=== PATIENT | female | born 1995 | race Caucasian/White ===

== ENCOUNTER 2021-03-31 08:57 | Inpatient (IN) | payer MEDICAID, SELFPAY ==
[~2021-03-31] VITALS: Ht 142.2 cm; Wt 52.6 kg
--- NOTE | 2021-03-31 08:57 | NUR ---
Note undone in EDM - 03/31/21 at 0941 by [email or web address] 25 Y FEMALE BIBA FROM [facility] DUE TO ABDOMINAL DISTENTION, PT ACTIVELY CRYING, AND PT UNABLE TO TOLERATE FEEDING THIS AM. PER EMS PT WAS ONLY ABLE TO TOLERATE HALF OF HER FEEDING THIS AM AND HAS BEEN CRYING X2 DAYS. BOWEL SOUNDS ACTIVE IN ALL 4 QUDRANTS, AND ABDOMEN NON-TENDER. G-TUBE NOTED WITH REDNESS AROUND SITE. BILTERAL WHEEZING NOTED. PT BASELINE IS NON-VERBAL PMH: CERBERAL PALSY, CHF, SEZIURE, G-TUBE, AND OSTEOPENIA ALLERGIES: LEVAQUIN, ZINC, CEFTRIAXONE, ADHESIVE
--- NOTE | 2021-03-31 08:57 | NUR ---
DR. TUBBS BEDSIDE EVALUATING PT
--- NOTE | 2021-03-31 08:57 | NUR ---
PT BIBA AND TAKEN TO BED 9
--- NOTE | 2021-03-31 08:57 | NUR ---
25 Y FEMALE BIBA FROM [facility] DUE TO ABDOMINAL DISTENTION, PT ACTIVELY CRYING, AND PT UNABLE TO TOLERATE FEEDING THIS AM. PER EMS PT WAS ONLY ABLE TO TOLERATE HALF OF HER FEEDING THIS AM AND HAS BEEN CRYING X2 DAYS. PT ALSO HAD LOW GRADE FEVER AT 99.1 AND GIVEN TYLENOL. BOWEL SOUNDS ACTIVE IN ALL 4 QUDRANTS, AND ABDOMEN NON-TENDER. G-TUBE NOTED WITH REDNESS AROUND SITE. BILTERAL WHEEZING NOTED. PT BASELINE IS NON-VERBAL PMH: CERBERAL PALSY, CHF, SEZIURE, G-TUBE, AND OSTEOPENIA ALLERGIES: LEVAQUIN, ZINC, CEFTRIAXONE, ADHESIVE
[2021-03-31 08:59] VITALS: BP 96/56
--- NOTE | 2021-03-31 09:20 | NUR ---
# 15 FR Urinary catheter inserted utilizing sterile technique. Immediate return of 20 ml YELLOW urine noted. Urine sample collected and sent to lab. Pt tolerated procedure WELL.
--- NOTE | 2021-03-31 09:22 | NUR ---
LAB BEDISDE WITH PATIENT
--- NOTE | 2021-03-31 09:25 | NUR ---
ORAL CARE WAS PROVIDED AT BEDSIDE
[2021-03-31] MEDS ORDERED: NACL 0.9% 1,000 ML IV ONE (09:50)
[2021-03-31 09:51] LABS: BASOPHILS # (AUTO) 0.1 K/uL (0.00-0.22); BASOPHILS % (AUTO) 0.6 % (0.0-2.0); EOSINOPHILS # (AUTO) 0.3 K/uL (0-0.4); EOSINOPHILS % (AUTO) 3.5 % (0.0-4.0); HEMATOCRIT 33.5 % (36-48); HEMOGLOBIN 11.5 g/dL (12.0-16.0); LYMPHOCYTES # (AUTO) 0.9 K/uL (2.5-16.5); LYMPHOCYTES % (AUTO) 10.5 % (20.5-51.1); MEAN CORPUSCULAR HEMOGLOBIN 33 pg (27-31); MEAN CORPUSCULAR HGB CONC 34 g/dL (33-37); MEAN CORPUSCULAR VOLUME 95.6 fL (80-94); MONOCYTES # (AUTO) 0.5 K/uL (0.8-1.0); MONOCYTES % (AUTO) 5.6 % (1.7-9.3); NEUTROPHILS # (AUTO) 6.7 K/uL (1.8-7.7); NEUTROPHILS % (AUTO) 79.8 % (42.2-75.2); PLATELET COUNT (AUTO) 326 K/uL (140-450); WHITE BLOOD COUNT (AUTO) 8.5 K/uL (4.8-10.8)
[2021-03-31 09:59] LABS: APPEARANCE,URINE CLEAR (CLEAR); BILIRUBIN,URINE NEGATIVE (NEGATIVE); BLOOD, URINE NEGATIVE (NEGATIVE); COLOR,URINE YELLOW (YELLOW); LEUKOCYTE ESTERASE ,URINE 2+ (NEGATIVE); NITRITE, URINE POSITIVE (NEGATIVE); UGLUCOSE NEGATIVE (NEGATIVE)
--- NOTE | 2021-03-31 10:03 | NUR ---
PT TAKEN TO CT VIA CLEVE
[2021-03-31] MEDS ORDERED: PIPERACILLIN/TAZOBACTAM 3.375 GM in DEXTROSE 5% 50 ML IV ONE (10:05)
[2021-03-31] MEDS ORDERED: NACL 0.9% 500 ML IV ONE (10:05)
--- NOTE | 2021-03-31 10:11 | NUR ---
PATIENT BACK FROM CT VIA GURNEY.
[2021-03-31 10:33] LABS: RBC,URINE 0-5 /HPF (0-5)
[2021-03-31] MEDS ORDERED: PIPERACILLIN/TAZOBACTAM 3.375 GM VIAL IV ONE (10:49)
[2021-03-31 10:52] LABS: ANION GAP 12.5 (8-16); CARBON DIOXIDE 25.7 mmol/L (21-32); CREATININE 0.4 mg/dL (0.6-1.3); POTASSIUM 4.2 mmol/L (3.5-5.1); TOTAL BILIRUBIN 0.2 mg/dL (0.0-1.0)
--- NOTE | 2021-03-31 11:11 | NUR ---
VITALS NORMAL, PATIENT RESTING.
[2021-03-31] MEDS ORDERED: GLYCERIN ADULT 1 SUPP RC ONE (11:25)
--- NOTE | 2021-03-31 11:38 | NUR ---
PT ADMITTED TO MED-SURG UNDER DR. RIOS. PT MED-SURG HOLD IN ER BED 9
[2021-03-31] MEDS ORDERED: [UNRECOGNIZED DRUG - CODE] GT (11:50)
[2021-03-31] MEDS ORDERED: [UNRECOGNIZED DRUG - CODE] GT (11:50)
[2021-03-31] MEDS ORDERED: NYST100022 GT/PO (11:50)
[2021-03-31] MEDS ORDERED: NYST100022 SUBQ (11:50)
[2021-03-31] MEDS ORDERED: VIT500LI GT (11:50)
[2021-03-31] MEDS ORDERED: PRON INH (11:50)
[2021-03-31] MEDS ORDERED: DOXY-690 GT (11:50)
[2021-03-31] MEDS ORDERED: LISI5TAB18 GT (11:50)
[2021-03-31] MEDS ORDERED: SODI100076 GT (11:50)
[2021-03-31] MEDS ORDERED: DIAZ2.5K PO (11:50)
[2021-03-31] MEDS ORDERED: ACET-1317 GT (11:50)
[2021-03-31] MEDS ORDERED: LAM200 GT (11:50)
[2021-03-31] MEDS ORDERED: MOM GT (11:50)
[2021-03-31] MEDS ORDERED: IBUP200C15 GT (11:50)
[2021-03-31] MEDS ORDERED: TIZA4CAP GT (11:50)
[2021-03-31] MEDS ORDERED: BACL10TA4 GT (11:50)
[2021-03-31] MEDS ORDERED: MIRABULK GT (11:50)
[2021-03-31] MEDS ORDERED: PHEN20EL30 GT (11:50)
[2021-03-31] MEDS ORDERED: ZINC220T3 GT (11:50)
[2021-03-31] MEDS ORDERED: METO25TA14 GT (11:50)
[2021-03-31] MEDS ORDERED: ROBAC GT (11:50)
[2021-03-31] MEDS ORDERED: AZEL23SP NS (11:50)
[2021-03-31] MEDS ORDERED: FAMO-90 GT (11:50)
[2021-03-31] MEDS ORDERED: CARB100S GT (11:50)
[2021-03-31] MEDS ORDERED: SIME80TA22 GT ×2 (11:50)
[2021-03-31] MEDS ORDERED: BISA-218 RC (11:50)
[2021-03-31] MEDS ORDERED: ACET-2619 GT (11:50)
[2021-03-31] MEDS ORDERED: METO5TAB4 GT (11:50)
--- NOTE | 2021-03-31 11:50 | NUR ---
MED REC COMPLETED. USED PATIENT MED-REC SENT FROM FACILITY TO ENTER MEDICATIONS INTO SYSTEM
--- NOTE | 2021-03-31 11:51 | NUR ---
KEV SWAB DONE AND TAKEN TO THE LAB.
--- NOTE | 2021-03-31 11:51 | NUR ---
ELENA ANGULO SWAB COLLECTED AND WALKED OVER TO LAB
--- NOTE | 2021-03-31 12:21 | NUR ---
CLEANED PATIENTS GARY AREA.
--- NOTE | 2021-03-31 13:18 | NUR ---
Patient will be admitted to care of DR RIOS. Admited to MED SURGE. Will go to room 110B. Belongings list completed. Report to NOHELIA CERDA. PATIENE TAKEN BY EMT SHELDON VIA CLEVE.
--- NOTE | 2021-03-31 13:30 | NUR ---
RECEIVED PT FROM ER. HAD TO CALL [facility] SHE IS FROM TO SEND OVER THE GT TUBE. THEY WILL DELIVER THE PORT BY THE END OF MY SHIFT. COULD NOT START TUBE FEEDING OR GIVE GT MEDS UNTIL THEN.
--- NOTE | 2021-03-31 14:52 | NUR ---
PATIENT HAS BEEN SCREENED AND CATEGORIZED HIGH NUTRITION RISK. PATIENT WILL BE SEEN WITHIN 1-2 DAYS OF ADMISSION. 03/31/21-04/01/[address]
--- NOTE | 2021-03-31 15:18 | NUR ---
03/31/21 RD INITIAL ASSESSMENT COMPLETED PLEASE REFER TO NUTRITION ASSESSMENT UNDER CARE ACTIVITY FOR ESTIMATED NUTRITIONAL NEEDS. 1. RECOMMENDED JEVITY 1.2 @ 45 ML/HR; START AT 10 ML/HR INCREASE BY 10 ML Q4H -THIS WILL PROVIDE 1296 KCAL/DAY AND 60 GM OF PROTEIN/DAY; MEETING ADEQUATE NUTRIENT NEEDS 2. RECOMMENDED FREE WATER FLUSH OF [address] PRN 4. RD TO FOLLOW-UP 2-3 DAYS, HIGH RISK AMARILIS SILVA RD
[2021-03-31 16:00] VITALS: BP 136/79
[2021-03-31] MEDS: LACTULOSE 20 GM/30 ML UDC PO SCH ×2 (16:15→22:00)
[2021-03-31] MEDS: SENNA 8.6 MG TAB PO SCH (17:00)
[2021-03-31] MEDS ORDERED: LACTULOSE 20 GM/30 ML UDC PO SCH (17:00)
[2021-03-31] MEDS: METOCLOPRAMIDE 10 MG/2 ML INJ VIAL IVP SCH (17:40)
[2021-03-31] MEDS ORDERED: SIMETHICONE 80 MG TAB.CHEW GT PRN ×2 (18:05)
[2021-03-31] MEDS ORDERED: ACETAMINOPHEN 325 MG TAB GT PRN (18:05)
[2021-03-31] MEDS ORDERED: ALBUTEROL 0.083% 2.5 MG/3 ML NEBU INH PRN (18:05)
[2021-03-31] MEDS ORDERED: HYDROcodone/APAP 5/325 MG 1 TAB TAB GT PRN (18:05)
[2021-03-31] MEDS ORDERED: LORazepam 2 MG/ML VIAL IVP PRN (18:05)
[2021-03-31] MEDS ORDERED: IBUPROFEN 200 MG GT SCH (18:05)
[2021-03-31] MEDS ORDERED: ACETAMINOPHEN 325 MG TAB GT SCH (18:05)
[2021-03-31] MEDS ORDERED: POLYETHYLENE GLYCOL 17 GM/PKT GT PRN (18:05)
[2021-03-31] MEDS ORDERED: [UNRECOGNIZED DRUG - OTHER] GT SCH (18:05)
[2021-03-31] MEDS: DEXT 5% / NACL 0.45% 1,000 ML IV SCH (18:05)
[2021-03-31] MEDS ORDERED: ONDANSETRON 4 MG/2 ML VIAL IVP PRN (18:05)
[2021-03-31] MEDS ORDERED: IBUPROFEN CHILDRENS 100 MG/5 ML UDC GT PRN (18:45)
[2021-03-31] MEDS ORDERED: ACETAMINOPHEN 650 MG/20.3 ML UDC GT PRN (19:05)
--- NOTE | 2021-03-31 19:50 | NUR ---
RECEIVED PT FROM AM SHIFT NURSE FOR CONTINUITY OF CARE. PT APHASIC. PT IN RA. PEG TUBE ASSEMBLY NOT ATTACHED. HELPED AM RN TO CONNECT AND FIX GTUBE TUBING SO THAT HE CAN ADMINISTER HIS DUE MEDICATION.NEW BOTTLE OF FEEDING TUBE WAS HOOKED UP. INFUSING WELL. TOLERATED BY PT. ALL PRECAUTIONS IN PLACE. WILL CONTINUE TO MONITOR.
--- NOTE | 2021-03-31 19:50 | NUR ---
ENDORSED PT TO NIGHT NURSE. DISCUSSED POC. ENDORSED INFORMATION ABOUT ALLERGIES. PT IS STABLE.
--- NOTE | 2021-03-31 19:55 | NUR ---
Pt received on room air. SpO2 94% on RA. Pt assessed for hhn tx PRN. No SOB noted. No indication observed for hhn tx at this time.
--- NOTE | 2021-03-31 20:00 | NUR ---
Pt received on 2L/min NC. SpO2 98% on 2L/m. Pt assessed for hhn tx PRN. No SOB noted. No indication observed for hhn tx at this time.
[2021-03-31] MEDS ORDERED: DIAZEPAM PO SCH (21:00)
[2021-03-31] MEDS ORDERED: guaiFENesin/CODEINE 100/10MG 5 ML UDC GT PRN (21:00)
[2021-03-31] MEDS: SODIUM PHOS / POTASSIUM PHOS 1 PKT PDR GT SCH (21:57)
--- NOTE | 2021-03-31 21:57 | NUR ---
WASTED 1MG OF STOCKED 4MG DIAZEPAM WITH PRASHANT RIVERA.
[2021-03-31] MEDS: diazePAM 2 MG TAB GT SCH (21:58)
--- NOTE | 2021-03-31 21:58 | NUR ---
DUE MEDICATIONS GIVEN.PT TOLERATED WELL. NO ACUTE DRUG REACTION NOTED.PT NOT IN ANY DISTRESS. ALL SAFETY PRECAUTIONS IN PLACE. WILL CONTINUE TO MONITOR.
[2021-03-31] MEDS ORDERED: MAGNESIUM CITRATE 300 ML BTL PO ONE (22:00)
--- NOTE | 2021-03-31 22:10 | NUR ---
MISCOUNTED PHENOBARBITAL 20MG/5ML SOLUTION. REMOVED 5 BUT ENTERED 1 REMAINING BUT IT'S SUPPOSED TO BE 0.
[2021-03-31] MEDS ORDERED: VANCOMYCIN 1,000 MG VIAL ONE (22:32)
[2021-03-31] MEDS: PIPERACILLIN/TAZOBACTAM 3.375 GM in DEXTROSE 5% 50 ML IV SCH (22:38)
--- NOTE | 2021-03-31 23:55 | NUR ---
PT ASLEEP IN BED. VISIBLE CHEST RISE AND FALL NOTED. PT NOT IN ANY DISTRESS.ALL PRECAUTIONS IN PLACE. WILL CONTINUE TO MONITOR.
--- NOTE | 2021-04-01 02:30 | NUR ---
ROUNDS MADE. PT STABLE. NO ACUTE S/SX OF DISTRESS. ALL SAFETY PRECAUTIONS IN PLACE. WILL CONTINUE TO MONITOR.
[2021-04-01 04:00] VITALS: BP 143/95
[2021-04-01] MEDS: DEXT 5% / NACL 0.45% 1,000 ML IV SCH (04:05)
[2021-04-01] MEDS: PIPERACILLIN/TAZOBACTAM 3.375 GM in DEXTROSE 5% 50 ML IV SCH ×3 (04:44→21:22)
--- NOTE | 2021-04-01 05:00 | NUR ---
DUE MEDS GIVEN. PT TOLERATED WELL. WILL CONTINUE TO MONITOR.
--- NOTE | 2021-04-01 06:44 | NUR ---
PT STABLE. NO ACUTE EVENTS THROUGHOUT THE NIGHT.PT NOT IN ANY DISTRESS AND NO COMPLAINS AT THIS TIME. ALL NEEDS ATTENDED.WILL ENDORSE TO AM SHIFT NURSE. WILL CONTINUE TO MONITOR.
[2021-04-01 06:53] LABS: BASOPHILS # (AUTO) 0.1 K/uL (0.00-0.22); BASOPHILS % (AUTO) 0.8 % (0.0-2.0); EOSINOPHILS # (AUTO) 0.2 K/uL (0-0.4); HEMATOCRIT 33.2 % (36-48); HEMOGLOBIN 11.2 g/dL (12.0-16.0); LYMPHOCYTES # (AUTO) 0.7 K/uL (2.5-16.5); LYMPHOCYTES % (AUTO) 10.6 % (20.5-51.1); MEAN CORPUSCULAR HEMOGLOBIN 33 pg (27-31); MEAN CORPUSCULAR HGB CONC 34 g/dL (33-37); MEAN CORPUSCULAR VOLUME 96.2 fL (80-94); MONOCYTES # (AUTO) 0.6 K/uL (0.8-1.0); MONOCYTES % (AUTO) 8.2 % (1.7-9.3); NEUTROPHILS # (AUTO) 5.4 K/uL (1.8-7.7); NEUTROPHILS % (AUTO) 77.4 % (42.2-75.2); PLATELET COUNT (AUTO) 345 K/uL (140-450); RED BLOOD CELL COUNT(AUTO) 3.45 MIL/uL (4.20-5.40); WHITE BLOOD COUNT (AUTO) 6.9 K/uL (4.8-10.8)
[2021-04-01 06:55] LABS: ANION GAP 16.6 (8-16); CARBON DIOXIDE 23.5 mmol/L (21-32); CREATININE 0.4 mg/dL (0.6-1.3); POTASSIUM 3.1 mmol/L (3.5-5.1)
--- NOTE | 2021-04-01 07:23 | NUR ---
ALL REPORTS WERE GIVEN TO INCOMING RN, TRANSFER OF CARE WAS ENDORSED.
--- NOTE | 2021-04-01 08:59 | NUR ---
Patient potassium at 3.1 notified Physician and awaiting orders.
[2021-04-01] MEDS ORDERED: TIZANIDINE HCL GT SCH (09:00)
[2021-04-01] MEDS ORDERED: MAGNESIUM HYDROXIDE 2400 MG/30 ML UDC GT SCH (09:00)
[2021-04-01] MEDS ORDERED: CHOLECALCIFEROL 1000 MCG GT SCH (09:00)
[2021-04-01] MEDS: ZINC SULF 220 MG CAP GT SCH (09:00)
[2021-04-01] MEDS ORDERED: NON-FORMULARY ITEM (Vit C/Ascorbate Ca/Ascorb Sod (Vitamin C 500 mg/15 ml Liquid) 500 MG) GT SCH (09:00)
[2021-04-01] MEDS ORDERED: METOCLOPRAMIDE 10 MG/10 ML SYRP UDC GT SCH (09:00)
[2021-04-01] MEDS ORDERED: NON-FORMULARY ITEM (Metoclopramide HCl 5 MG) GT SCH (09:00)
[2021-04-01] MEDS ORDERED: ZINC SULFATE 220 MG GT SCH (09:00)
[2021-04-01] MEDS: SODIUM PHOS / POTASSIUM PHOS 1 PKT PDR GT SCH ×2 (09:01→21:22)
[2021-04-01] MEDS ORDERED: POTASSIUM CHLORIDE 10 MEQ TABER PO SCH ×2 (10:00→11:00)
[2021-04-01] MEDS ORDERED: MAG SULF 2000 MG/WATER PREMIX 50 ML IV PRN (10:20)
[2021-04-01] MEDS ORDERED: POTASSIUM CHLORIDE 10 MEQ TABER PO PRN (10:20)
[2021-04-01] MEDS: LACTULOSE 20 GM/30 ML UDC PO SCH ×2 (11:24→11:50)
[2021-04-01] MEDS: diazePAM 2 MG TAB GT SCH ×2 (11:25→21:00)
[2021-04-01] MEDS: METOPROLOL 25 MG TAB GT SCH (11:28)
[2021-04-01] MEDS: NYSTATIN 500 MU/5 ML UDC GT SCH (11:28)
[2021-04-01] MEDS: FAMOTIDINE 20 MG TAB GT SCH (11:28)
[2021-04-01] MEDS: tiZANidine 4 MG TAB GT SCH ×3 (11:30→17:38)
[2021-04-01] MEDS: CHOLECALCIFEROL 1,000 IU TAB GT SCH (11:30)
[2021-04-01] MEDS: BACLOFEN 10 MG TAB GT SCH ×3 (11:30→17:37)
[2021-04-01] MEDS: lisinopriL 5 MG TAB GT SCH (11:31)
[2021-04-01] MEDS: ASCORBIC ACID 500 MG/5 ML ORASYR GT SCH (11:33)
[2021-04-01] MEDS: SODIUM CHLORIDE 1 GM TAB GT SCH ×3 (11:35→17:37)
[2021-04-01] MEDS: SENNA 8.6 MG TAB PO SCH (11:37)
[2021-04-01] MEDS: METOCLOPRAMIDE 10 MG/2 ML INJ VIAL IVP SCH (11:42)
[2021-04-01] MEDS: bisacodyL 10 MG SUPP RC SCH (11:42)
[2021-04-01] MEDS ORDERED: POTASSIUM CHLORIDE 20% 40 MEQ/15 ML UDC GT SCH (11:55)
[2021-04-01 12:00] VITALS: BP 143/76
--- NOTE | 2021-04-01 13:21 | NUR ---
patient had a witnessed Seizure that lasted 30 seconds per Geni Blackburn. Person was shaking and rolling eyes. Given meds and has no further seizure activity.
--- NOTE | 2021-04-01 14:36 | NUR ---
DC PLANN[age] YRS OLD FEMALE PATIENT WAS ADMITTED FROM [facility] WITH A DX OF UTI AND FECAL IMPACTION. PATIENT HAS A HX OF CEREBRAL PALSY, HTN, DYSPHAGIA. RAPID COVID TEST NEGATIVE. CT ABD/PELVIS SHOWED GASEOUS DISTENTION OF THE LARGE BOWEL . ADMINISTERED IV ABX ZOSYN AND CONTINUED HOME MEDS. URINE CULTURE PENDING. CONSULTED WITH GI, AND ID. DC PLAN TO GO BACK TO [facility] WHEN STABLE. CM TO FOLLOW Addendum: 04/02/21 at 1245 by Debora Irizarry RN DC PLANNING: PATIENT HAS BM SEEN BY NEUROLOGIST AND ID . AWAITING FOR URINE CULTURE , DC PLAN TO GO BACK TO [facility] WHEN STABLE CM TO FOLLOW.
--- NOTE | 2021-04-01 19:33 | NUR ---
PT RECEIVED ON RA NO RESPIRATORY DISTRESS NOTED, SHE WAS ASLEEP. BS CLEAR DIMINISHED ASSESSED FOR HHN TX NON NEEDED. WILL CONTINUE TO MONITOR.
--- NOTE | 2021-04-01 19:35 | NUR ---
RECEIVED PT FROM AM SHIFT NURSE FOR CONTINUITY OF CARE. PT APHASIC. PT IN RA.TUBE FEEDING WITH NO RESIDUALS,RUNNING JEVITY 1.2 20ML/HR WITH 120ML WATER FLUSH Q4.ALL SAFETY PRECAUTIONS IN PLACE. WILL CONTINUE TO MONITOR.
[2021-04-01 20:00] VITALS: BP 129/67
--- NOTE | 2021-04-01 21:15 | NUR ---
DUE MEDICATIONS GIVEN.PT TOLERATED WELL. NO ACUTE DRUG REACTION NOTED.PT NOT IN ANY DISTRESS. ALL SAFETY PRECAUTIONS IN PLACE. WILL CONTINUE TO MONITOR.
--- NOTE | 2021-04-01 23:30 | NUR ---
PT ASLEEP IN BED. VISIBLE CHEST RISE AND FALL NOTED. PT NOT IN ANY DISTRESS.ALL PRECAUTIONS IN PLACE. WILL CONTINUE TO MONITOR.
--- NOTE | 2021-04-02 02:12 | NUR ---
ROUNDS MADE. PT STABLE. NO ACUTE S/SX OF DISTRESS. ALL SAFETY PRECAUTIONS IN PLACE. WILL CONTINUE TO MONITOR.
[2021-04-02 04:00] VITALS: BP 151/82
[2021-04-02] MEDS: PIPERACILLIN/TAZOBACTAM 3.375 GM in DEXTROSE 5% 50 ML IV SCH ×3 (04:52→22:26)
--- NOTE | 2021-04-02 06:15 | NUR ---
PT STABLE. NO ACUTE EVENTS THROUGHOUT THE NIGHT.PT NOT IN ANY DISTRESS AND NO COMPLAINS AT THIS TIME. ALL NEEDS ATTENDED.WILL ENDORSE TO AM SHIFT NURSE.
[2021-04-02 06:47] LABS: ANION GAP 13.1 (8-16); CARBON DIOXIDE 27.7 mmol/L (21-32); CREATININE 0.4 mg/dL (0.6-1.3); POTASSIUM 3.8 mmol/L (3.5-5.1)
[2021-04-02 06:50] LABS: MAGNESIUM 2.4 mg/dL (1.8-2.4); PHOSPHORUS 4.1 mg/dL (2.5-4.9)
[2021-04-02 06:58] LABS: BASOPHILS # (AUTO) 0.1 K/uL (0.00-0.22); BASOPHILS % (AUTO) 0.9 % (0.0-2.0); EOSINOPHILS # (AUTO) 0.4 K/uL (0-0.4); EOSINOPHILS % (AUTO) 5.1 % (0.0-4.0); HEMATOCRIT 33.4 % (36-48); HEMOGLOBIN 11.2 g/dL (12.0-16.0); LYMPHOCYTES # (AUTO) 1.8 K/uL (2.5-16.5); MEAN CORPUSCULAR HEMOGLOBIN 32 pg (27-31); MEAN CORPUSCULAR HGB CONC 33 g/dL (33-37); MEAN CORPUSCULAR VOLUME 96.3 fL (80-94); MONOCYTES # (AUTO) 0.5 K/uL (0.8-1.0); NEUTROPHILS # (AUTO) 5.3 K/uL (1.8-7.7); PLATELET COUNT (AUTO) 311 K/uL (140-450); RED BLOOD CELL COUNT(AUTO) 3.47 MIL/uL (4.20-5.40)
--- NOTE | 2021-04-02 07:34 | NUR ---
PT ENDORSED TO AM SHIFT NURSE FOR CONTINUITY OF CARE.PT STABLE.SIGNING OFF
[2021-04-02] MEDS: bisacodyL 10 MG SUPP RC SCH (09:00)
[2021-04-02] MEDS: ZINC SULF 220 MG CAP GT SCH (09:00)
--- NOTE | 2021-04-02 09:21 | NUR ---
Patient awake, alert but unable to verbalize needs. Does not show any signs of pain, no new seizure active and resting in bed comfortably.
[2021-04-02] MEDS: FAMOTIDINE 20 MG TAB GT SCH (09:23)
[2021-04-02] MEDS: SODIUM PHOS / POTASSIUM PHOS 1 PKT PDR GT SCH ×2 (09:24→21:00)
[2021-04-02] MEDS: diazePAM 2 MG TAB GT SCH ×2 (09:24→22:25)
[2021-04-02] MEDS: METOPROLOL 25 MG TAB GT SCH (09:25)
[2021-04-02] MEDS: tiZANidine 4 MG TAB GT SCH ×3 (09:25→17:58)
[2021-04-02] MEDS: LACTULOSE 20 GM/30 ML UDC PO SCH (09:25)
[2021-04-02] MEDS: NYSTATIN 500 MU/5 ML UDC GT SCH (09:26)
[2021-04-02] MEDS: SODIUM CHLORIDE 1 GM TAB GT SCH ×3 (09:26→17:58)
[2021-04-02] MEDS: BACLOFEN 10 MG TAB GT SCH ×3 (09:26→17:58)
[2021-04-02] MEDS: CHOLECALCIFEROL 1,000 IU TAB GT SCH (09:27)
[2021-04-02] MEDS: ASCORBIC ACID 500 MG/5 ML ORASYR GT SCH (09:27)
[2021-04-02] MEDS: lisinopriL 5 MG TAB GT SCH (09:31)
[2021-04-02 12:00] VITALS: BP 135/89
--- NOTE | 2021-04-02 12:11 | NUR ---
WOUND CARE NOTE: PT. WITH LOW NILSON SCALE AT HIGH RISK, SKIN ASSESSMENT DONE, UPPER EXTREMITIES CONTRACTURE, RIGHT ARM ECCHYMOSIS POSSIBLE FROM BLOOD DRAW, LEFT POSTERIOR KNEE 0.5X0.5 INTACT CLEAR FLUIDS BLISTER, GARY WOUND DRY HEALED SCAR TISSUE, WILL CONTINUE TO FOLLOW PRESSURE INJURY PREVENTION INTERVENTIONS. -APPLY VERSATEL DRESSING TO LEFT POSTERIOR KNEE BLISTER TODAY AND Q DAYS -TURN AND REPOSITION PATIENT Q 2H -ASSESS AND MONITOR SKIN CONDITION DURING POSITION CHANGE -OFFLOAD BILATERAL HEELS BY PLACING PILLOWS UNDER CALVES AT ALL TIMES, UNLESS OTHERWISE CONTRAINDICATED -PRESSURE REDISTRIBUTION SURFACE AND OFFLOADING SACRALCOCCYX -KEEP SKIN CLEAN AND DRY AT ALL TIMES. PLEASE NOTIFIED WOUND CARE NURSE FOR ANY CHANGE OF SKIN CONDITION
--- NOTE | 2021-04-02 13:22 | NUR ---
RECEIVED APPROVAL FROM DR. AUSTIN TO INCREASE TUBE FEEDING RATE OF JEVITY 1.2 TO 45 ML/HR. RN WAS NOTIFIED.
--- NOTE | 2021-04-02 16:11 | NUR ---
04/02/21 RD FOLLOW UP COMPLETED PLEASE REFER TO NUTRITION ASSESSMENT UNDER CARE ACTIVITY FOR ESTIMATED NUTRITIONAL NEEDS. 1. RECOMMENDED JEVITY 1.2 @ 45 ML/HR; START AT 20 ML/HR INCREASE BY 10 ML Q4H -THIS WILL PROVIDE 1296 KCAL/DAY AND 60 GM OF PROTEIN/DAY; MEETING ADEQUATE NUTRIENT NEEDS 2. RECOMMEND FREE WATER FLUSH OF [address] PRN 4. RD TO FOLLOW-UP 2-3 DAYS, HIGH RISK AMARILIS SILVA RD
[2021-04-02 20:00] VITALS: BP 114/56
--- NOTE | 2021-04-02 20:00 | NUR ---
RECEIVED BEDSIDE REPORT FROM DAY RN FOR CONTINUITY OF CARE. PATIENT ASLEEP AND AROUSABLE TO TOUCH. NOT IN ANY DISTRESS. IVF AND G TUBE FEEDING INFUSING ORDERED. HEAD OF BED ELEVATED TO PREVENT ASPIRATION. BED IN LOW POSITION, BRAKES AND BED ALARM ON. WILL CONTINUE POC AND OBSERVATION.
--- NOTE | 2021-04-02 22:00 | NUR ---
ALL DUE MEDS GIVEN AND PT TOLERATED IT WELL. NO ADVERSE DRUG REACTION NOTED. WILL CONTINUE OBSERVATION.
--- NOTE | 2021-04-03 02:04 | NUR ---
PATIENT ASLEEP AT THIS TIME. VISIBLE CHEST RISE AND FALL NOTED. WILL CONTINUE OBSERVATION.
[2021-04-03 04:00] VITALS: BP 165/107
--- NOTE | 2021-04-03 04:00 | NUR ---
PATIENT BLOOD PRESSURE IS HIGH. WILL GIVE THE LISINOPRIL AND METOPROLOL EARLY. WILL CONTINUE TO MONITOR THE PT.
[2021-04-03] MEDS: PIPERACILLIN/TAZOBACTAM 3.375 GM in DEXTROSE 5% 50 ML IV SCH ×3 (04:53→21:00)
[2021-04-03] MEDS: METOPROLOL 25 MG TAB GT SCH (05:41)
[2021-04-03] MEDS: lisinopriL 5 MG TAB GT SCH (05:41)
[2021-04-03 06:01] LABS: BASOPHILS # (AUTO) 0.1 K/uL (0.00-0.22); BASOPHILS % (AUTO) 0.9 % (0.0-2.0); EOSINOPHILS # (AUTO) 0.4 K/uL (0-0.4); EOSINOPHILS % (AUTO) 5.3 % (0.0-4.0); HEMATOCRIT 34.1 % (36-48); HEMOGLOBIN 11.6 g/dL (12.0-16.0); LYMPHOCYTES # (AUTO) 2.5 K/uL (2.5-16.5); LYMPHOCYTES % (AUTO) 33.6 % (20.5-51.1); MEAN CORPUSCULAR HEMOGLOBIN 33 pg (27-31); MEAN CORPUSCULAR HGB CONC 34 g/dL (33-37); MONOCYTES # (AUTO) 0.4 K/uL (0.8-1.0); NEUTROPHILS % (AUTO) 54.2 % (42.2-75.2); PLATELET COUNT (AUTO) 341 K/uL (140-450); RED BLOOD CELL COUNT(AUTO) 3.56 MIL/uL (4.20-5.40); RED CELL DISTRIBUTION WIDTH 12.8 % (11.6-13.7); WHITE BLOOD COUNT (AUTO) 7.4 K/uL (4.8-10.8)
[2021-04-03 06:12] LABS: MAGNESIUM 2.1 mg/dL (1.8-2.4); PHOSPHORUS 4.5 mg/dL (2.5-4.9)
[2021-04-03 06:13] LABS: ANION GAP 12.8 (8-16); CARBON DIOXIDE 27.2 mmol/L (21-32); CREATININE 0.3 mg/dL (0.6-1.3)
--- NOTE | 2021-04-03 06:24 | NUR ---
PATIENT STABLE. NO SIGN AND SYMPTOMS OF DISTRESS NOTED AT THIS TIME. ALL NEEDS ATTENDED. WILL ENDORSE THE PATIENT TO THE ONCOMING RN FOR CONTINUITY OF CARE. CALL LIGHT WITHIN REACH.
--- NOTE | 2021-04-03 07:27 | NUR ---
ENDORSED THE PATIENT TO THE ONCOMING RN ANDREW FOR CONTINUITY OF CARE. PATIENT STABLE. SIGNING OFF.
[2021-04-03] MEDS: bisacodyL 10 MG SUPP RC SCH (09:00)
[2021-04-03] MEDS: tiZANidine 4 MG TAB GT SCH ×3 (09:23→16:37)
[2021-04-03] MEDS: LACTULOSE 20 GM/30 ML UDC PO SCH (09:23)
[2021-04-03] MEDS: FAMOTIDINE 20 MG TAB GT SCH (09:24)
[2021-04-03] MEDS: BACLOFEN 10 MG TAB GT SCH ×3 (09:24→16:37)
[2021-04-03] MEDS: SODIUM CHLORIDE 1 GM TAB GT SCH ×3 (09:24→16:36)
[2021-04-03] MEDS: CHOLECALCIFEROL 1,000 IU TAB GT SCH (09:24)
[2021-04-03] MEDS: diazePAM 2 MG TAB GT SCH ×2 (09:25→21:39)
[2021-04-03] MEDS: SODIUM PHOS / POTASSIUM PHOS 1 PKT PDR GT SCH ×2 (09:25→21:38)
[2021-04-03] MEDS: NYSTATIN 500 MU/5 ML UDC GT SCH (09:25)
[2021-04-03] MEDS: ASCORBIC ACID 500 MG/5 ML ORASYR GT SCH (09:26)
--- NOTE | 2021-04-03 19:10 | NUR ---
RECEIVED ENDORSEMENT FROM MORNING SHIFT FOR CONTINUITY OF CARE. PATIENT STABLE AND SLEEPING IN BED. A&O X0. FLACC 0. NO APPARENT S/SX OF ACUTE RESPIRATORY DISTRESS. IVF AND GT FEEDING INFUSING ORDERED. POC AND WHITE BOARD COMMUNICATION UPDATED. HOB ELEVATED TO PREVENT ASPIRATION. BED IN LOW/LOCKED POSITION. ALL SAFETY MEASURES IN PLACE. CALL LIGHT WITHIN REACH. WILL CONTINUE TO MONITOR.
[2021-04-03 20:00] VITALS: BP 128/70
--- NOTE | 2021-04-03 20:00 | NUR ---
Patient's Plan of Care was discussed and reviewed with TANYA: JAZZ
--- NOTE | 2021-04-03 21:10 | NUR ---
ADMINISTERED SCHEDULED MEDICATIONS. TOLERATED WELL. GT INTACT/PATENT. NO RESIDUALS NOTED AT THIS TIME. NO APPARENT S/SX OF ACUTE RESPIRATORY DISTRESS. FLACC 0. ALL SAFETY MEASURES IN PLACE. CALL LIGHT WITHIN REACH. WILL CONTINUE TO MONITOR.
[2021-04-03] MEDS ORDERED: CRUSHER, PILL MC ONE (21:42)
--- NOTE | 2021-04-03 23:00 | NUR ---
CHECKED PATIENT, SLEEPING COMFORTABLY IN BED. STILL DRY AND CLEAN. REPOSITIONED WITH PILLOWS ON ALL PRESSURE POINTS. APPLIED HEEL PROTECTORS ON BILATERAL HEELS.
--- NOTE | 2021-04-04 01:00 | NUR ---
CHECKED PATIENT. STABLE AND SLEEPING COMFORTABLY LYING IN RIGHT SIDE. FLACC 0. RESPIRATIONS EVEN AND UNLABORED. NO APPARENT S/SX OF ACUTE RESPIRATORY DISTRESS. WHITE COMMUNICATION BOARD UPDATED. ALL SAFETY MEASURES IN PLACE. CALL LIGHT WITHIN REACH. WILL CONTINUE TO MONITOR.
--- NOTE | 2021-04-04 03:00 | NUR ---
CHECKED PATIENT. STABLE AND SLEEPING COMFORTABLY LYING IN LEFT SIDE. FLACC 0. RESPIRATIONS EVEN AND UNLABORED. NO APPARENT S/SX OF ACUTE RESPIRATORY DISTRESS. WHITE COMMUNICATION BOARD UPDATED. ALL SAFETY MEASURES IN PLACE. CALL LIGHT WITHIN REACH. WILL CONTINUE TO MONITOR.
[2021-04-04 04:00] VITALS: BP 147/89
[2021-04-04] MEDS: PIPERACILLIN/TAZOBACTAM 3.375 GM in DEXTROSE 5% 50 ML IV SCH ×4 (05:00→22:02)
--- NOTE | 2021-04-04 07:05 | NUR ---
ENDORSED TO AM SHIFT FOR CONTINUITY OF CARE. PATIENT IS STABLE.
--- NOTE | 2021-04-04 07:08 | NUR ---
RECEIVED REPORT FROM NIGHT NURSE PT IS SLEEPING ON ROOM AIR, TUBE FEEDING LAST BM 04/03/21 IV INTACT ON LEFT AC TKO, SKIN INTACT WITH BLISTERS BEHIND KNEE. SEIZURE ON APR 02 AND EEG DONE SEEN BY DR WALKER.SAFETY MEASURES IN PLACE AND CALL LIGHT WITHIN REACH. WILL CONTINUE TO MONITOR.
[2021-04-04 07:25] LABS: PHOSPHORUS 5.1 mg/dL (2.5-4.9)
[2021-04-04 07:32] LABS: BASOPHILS # (AUTO) 0.1 K/uL (0.00-0.22); BASOPHILS % (AUTO) 0.9 % (0.0-2.0); EOSINOPHILS # (AUTO) 0.4 K/uL (0-0.4); EOSINOPHILS % (AUTO) 6.8 % (0.0-4.0); HEMATOCRIT 36.7 % (36-48); HEMOGLOBIN 12.5 g/dL (12.0-16.0); LYMPHOCYTES # (AUTO) 1.4 K/uL (2.5-16.5); LYMPHOCYTES % (AUTO) 22.4 % (20.5-51.1); MEAN CORPUSCULAR HEMOGLOBIN 33 pg (27-31); MEAN CORPUSCULAR HGB CONC 34 g/dL (33-37); MEAN CORPUSCULAR VOLUME 95.9 fL (80-94); MONOCYTES # (AUTO) 0.5 K/uL (0.8-1.0); MONOCYTES % (AUTO) 7.8 % (1.7-9.3); NEUTROPHILS # (AUTO) 3.9 K/uL (1.8-7.7); NEUTROPHILS % (AUTO) 62.1 % (42.2-75.2); PLATELET COUNT (AUTO) 380 K/uL (140-450); RED BLOOD CELL COUNT(AUTO) 3.82 MIL/uL (4.20-5.40); WHITE BLOOD COUNT (AUTO) 6.3 K/uL (4.8-10.8)
[2021-04-04 08:00] VITALS: BP 152/90
--- NOTE | 2021-04-04 09:00 | NUR ---
SCHEDULED MEDICATION GIVEN NO RESIDUAL VOLUME.PT AWAKE AND WITH COUGH. PT TOLERATED WELL WILL CONTINUE TO MONITOR.
[2021-04-04] MEDS: BACLOFEN 10 MG TAB GT SCH ×3 (09:34→16:30)
[2021-04-04] MEDS: METOPROLOL 25 MG TAB GT SCH (09:34)
[2021-04-04] MEDS: SODIUM PHOS / POTASSIUM PHOS 1 PKT PDR GT SCH ×2 (09:35→21:26)
[2021-04-04] MEDS: NYSTATIN 500 MU/5 ML UDC GT SCH (09:35)
[2021-04-04] MEDS: SODIUM CHLORIDE 1 GM TAB GT SCH ×3 (09:36→16:30)
[2021-04-04] MEDS: FAMOTIDINE 20 MG TAB GT SCH (09:36)
[2021-04-04] MEDS: ASCORBIC ACID 500 MG/5 ML ORASYR GT SCH (09:37)
[2021-04-04] MEDS: CHOLECALCIFEROL 1,000 IU TAB GT SCH (09:37)
[2021-04-04] MEDS: diazePAM 2 MG TAB GT SCH ×2 (09:37→21:27)
[2021-04-04] MEDS: tiZANidine 4 MG TAB GT SCH ×3 (09:37→16:31)
[2021-04-04] MEDS: bisacodyL 10 MG SUPP RC SCH (09:38)
[2021-04-04] MEDS: LACTULOSE 20 GM/30 ML UDC PO SCH (09:38)
[2021-04-04] MEDS: lisinopriL 5 MG TAB GT SCH (09:38)
[2021-04-04 10:05] LABS: ANION GAP 9.5 (8-16); CARBON DIOXIDE 32.8 mmol/L (21-32); CREATININE 0.4 mg/dL (0.6-1.3); POTASSIUM 4.3 mmol/L (3.5-5.1)
--- NOTE | 2021-04-04 13:00 | NUR ---
MEDICATIONS GIVEN NO RESIDUAL PT SLEEPING
[2021-04-04 16:00] VITALS: BP 125/57
--- NOTE | 2021-04-04 19:17 | NUR ---
ENDORSED TO NIGHT NURSE FOR CONTINUITY OF CARE.PT STABLE
[2021-04-04 20:00] VITALS: BP 93/44
--- NOTE | 2021-04-04 20:00 | NUR ---
Patient's Plan of Care was discussed and reviewed with MEDICAL RECORD LIBRARIAN: JAZZ DONG
--- NOTE | 2021-04-04 21:26 | NUR ---
ADMINISTERED SCHEDULED 2100 MEDICATIONS PER MD ORDER. GT SITE AND DRESSING INTACT. NO RESIDUALS NOTED AT THIS TIME. TOLERATED MEDICATIONS WELL. FLACC 0. RESPIRATIONS EVEN AND UNLABORED. NO APPARENT S/SX OF ACUTE RESPIRATORY DISTRESS. WHITE BOARD COMMUNICATION UPDATED. ALL SAFETY MEASURES IN PLACE. BED IN LOW/LOCKED POSITION. CALL LIGHT WITHIN REACH. WILL CONTINUE TO MONITOR.
--- NOTE | 2021-04-04 23:26 | NUR ---
CHECKED PATIENT. STABLE AND AWAKE. FLACC 0. RESPIRATIONS EVEN AND UNLABORED. NO APPARENT S/SX OF ACUTE RESPIRATORY DISTRESS. WHITE COMMUNICATION BOARD UPDATED. ALL SAFETY MEASURES IN PLACE. CALL LIGHT WITHIN REACH. WILL CONTINUE TO MONITOR.
--- NOTE | 2021-04-05 01:26 | NUR ---
ROUNDED ON PATIENT. STABLE AND ASLEEP. FLACC 0. RESPIRATIONS EVEN AND UNLABORED. NO APPARENT S/SX OF ACUTE RESPIRATORY DISTRESS. WHITE COMMUNICATION BOARD UPDATED. ALL SAFETY MEASURES IN PLACE. CALL LIGHT WITHIN REACH. WILL CONTINUE TO MONITOR.
--- NOTE | 2021-04-05 03:26 | NUR ---
MEASURED, DOCUMENTED, AND TOOK PHOTOS OF PATIENT'S BLISTER BEHIND KNEES PER WOUND ASSESSMENT ROUTINE. FLACC 0. NO APPARENT S/SX OF ACUTE RESPIRATORY DISTRESS. PATIENT SOILED. WILL ENDORSE TO SPEAKING UNIT ASSEMBLER TO CLEAN PATIENT. ALL SAFETY MEASURES IN PLACE. CALL LIGHT WITHIN REACH. WILL CONTINUE TO MONITOR.
[2021-04-05 04:00] VITALS: BP 106/73
[2021-04-05] MEDS ORDERED: PIPERACILLIN/TAZOBACTAM 3.375 GM VIAL IV ONE (05:23)
--- NOTE | 2021-04-05 05:26 | NUR ---
CHECKED PATIENT. STABLE AND ASLEEP. FLACC 0. RESPIRATIONS EVEN AND UNLABORED. NO APPARENT S/SX OF ACUTE RESPIRATORY DISTRESS. WHITE COMMUNICATION BOARD UPDATED. ALL SAFETY MEASURES IN PLACE. CALL LIGHT WITHIN REACH. WILL CONTINUE TO MONITOR.
[2021-04-05] MEDS: PIPERACILLIN/TAZOBACTAM 3.375 GM in DEXTROSE 5% 50 ML IV SCH (05:34)
[2021-04-05 07:05] LABS: BASOPHILS # (AUTO) 0.1 K/uL (0.00-0.22); BASOPHILS % (AUTO) 0.7 % (0.0-2.0); EOSINOPHILS # (AUTO) 0.5 K/uL (0-0.4); EOSINOPHILS % (AUTO) 7.3 % (0.0-4.0); HEMATOCRIT 34.3 % (36-48); HEMOGLOBIN 11.7 g/dL (12.0-16.0); LYMPHOCYTES # (AUTO) 1.3 K/uL (2.5-16.5); LYMPHOCYTES % (AUTO) 17.3 % (20.5-51.1); MEAN CORPUSCULAR HEMOGLOBIN 33 pg (27-31); MEAN CORPUSCULAR HGB CONC 34 g/dL (33-37); MEAN CORPUSCULAR VOLUME 95.7 fL (80-94); MONOCYTES # (AUTO) 0.5 K/uL (0.8-1.0); MONOCYTES % (AUTO) 6.7 % (1.7-9.3); PLATELET COUNT (AUTO) 377 K/uL (140-450); RED BLOOD CELL COUNT(AUTO) 3.58 MIL/uL (4.20-5.40); RED CELL DISTRIBUTION WIDTH 12.8 % (11.6-13.7); WHITE BLOOD COUNT (AUTO) 7.3 K/uL (4.8-10.8)
--- NOTE | 2021-04-05 07:10 | NUR ---
RECEIVED REPORT FROM NIGHT NURSE, THE PATIENT IS SLEEPING, TUBE FEEDING IS WORKING. IV INTACT ON LEFT AC TKO, SKIN INTACT EXCEPT FOR SMALL BLISTER BEHIND L KNEE. SEIZURE PRECAUTIONS. SAFETY MEASURES IN PLACE AND CALL LIGHT WITHIN REACH.
--- NOTE | 2021-04-05 07:10 | NUR ---
ENDORSED PATIENT TO MORNING SHIFT FOR CONTINUITY OF CARE. PATIENT IS STABLE.
[2021-04-05 07:11] LABS: ALBUMIN 2.9 g/dL (3.4-5.0); ANION GAP 6.2 (8-16); CARBON DIOXIDE 29.7 mmol/L (21-32); CREATININE 0.4 mg/dL (0.6-1.3); POTASSIUM 3.9 mmol/L (3.5-5.1); TOTAL BILIRUBIN 0.3 mg/dL (0.0-1.0)
[2021-04-05 07:15] LABS: PHOSPHORUS 4.3 mg/dL (2.5-4.9)
[2021-04-05] MEDS: diazePAM 2 MG TAB GT SCH (09:00)
[2021-04-05] MEDS: METOPROLOL 25 MG TAB GT SCH (09:00)
[2021-04-05] MEDS: tiZANidine 4 MG TAB GT SCH (09:00)
[2021-04-05] MEDS: ASCORBIC ACID 500 MG/5 ML ORASYR GT SCH (09:00)
[2021-04-05] MEDS: SODIUM CHLORIDE 1 GM TAB GT SCH (09:00)
[2021-04-05] MEDS: bisacodyL 10 MG SUPP RC SCH (09:00)
[2021-04-05] MEDS: lisinopriL 5 MG TAB GT SCH (09:00)
[2021-04-05] MEDS: BACLOFEN 10 MG TAB GT SCH (09:00)
[2021-04-05] MEDS: SODIUM PHOS / POTASSIUM PHOS 1 PKT PDR GT SCH (09:00)
[2021-04-05] MEDS: CHOLECALCIFEROL 1,000 IU TAB GT SCH (09:00)
[2021-04-05] MEDS: FAMOTIDINE 20 MG TAB GT SCH (09:00)
[2021-04-05] MEDS: NYSTATIN 500 MU/5 ML UDC GT SCH (09:00)
[2021-04-05] MEDS: LACTULOSE 20 GM/30 ML UDC PO SCH (09:00)
[2021-04-05] MEDS ORDERED: SULF-58 GT (09:27)
--- NOTE | 2021-04-05 10:00 | NUR ---
TALKED TO PT MOM AND ALSO TO ARACELIS AT [facility] ABOUT DC ORDERS. ARACELIS SAID [facility] WILL [address] LIGHT AROUND 1400. GAVE REPORT TO ARACELIS AT [facility].
[2021-04-05 12:56] VITALS: BP 137/94
--- NOTE | 2021-04-05 14:30 | NUR ---
PT IS RESTING. BREATHING IS UNLABORED AND EVEN. IV WAS TAKEN OUT AND IT WAS INTACT. PT IS STABLE. [facility] PICKED UP AT 1430 TO TRANSFER TO [facility], DC PACKET WAS GIVEN TO TRANSPORT COMPANY.
--- NOTE | 2021-04-05 14:35 | NUR ---
INFOMRED PTS MOM SCARLET PETTITMONICAJacques ABOUT DC AND GAVE HER A QUICK REPORT TO ANSWERING ALL HER QUESTIONS.
== END 2021-04-05 14:25 | DRG 720 ==
LOC: MED 08:57 → MTU 11:38
PROVIDERS: ADMIT Internal Medicine Cardiovascular Disease; ATTEND Internal Medicine Cardiovascular Disease
PROC: 4A10X4Z Monitoring of Central Nervous Electrical Activity, External Approach (ICD-10-PCS; principal; 2021-04-01)
DX: A41.9 Sepsis, unspecified organism (principal); G82.50 Quadriplegia, unspecified; E44.1 Mild protein-calorie malnutrition; D64.9 Anemia, unspecified; N39.0 Urinary tract infection, site not specified; K56.41 Fecal impaction; J18.9 Pneumonia, unspecified organism; R13.10 Dysphagia, unspecified; R73.9 Hyperglycemia, unspecified; M41.9 Scoliosis, unspecified; B96.89 Other specified bacterial agents as the cause of diseases classified elsewhere; G40.909 Epilepsy, unspecified, not intractable, without status epilepticus; E87.6 Hypokalemia; M85.80 Other specified disorders of bone density and structure, unspecified site; I51.7 Cardiomegaly; B96.4 Proteus (mirabilis) (morganii) as the cause of diseases classified elsewhere; Z20.822 Contact with and (suspected) exposure to COVID-19; Z88.1 Allergy status to other antibiotic agents; Z88.8 Allergy status to other drugs, medicaments and biological substances; Z79.01 Long term (current) use of anticoagulants; Z68.26 Body mass index [BMI] 26.0-26.9, adult
CPT/HCPCS: 36415; 71045; 80048; 80053; 81001; 83605; 83690; 83735; 84100; 85025; 85651; 86140; 87040; 87081; 87086; 96365; 99285; J1644; J2543; J2765; J3370; J7060; Q0092

== ENCOUNTER 2023-01-12 07:37 | Inpatient (IN) | payer MEDICAID, OTHER ==
[~2023-01-12] VITALS: Ht 152.4 cm; Wt 83.9 kg
[~2023-01-12 07:37] MED LIST: ACET-1317 GT; ACET-2619 GT; AZEL23SP NS; BACL10TA4 GT; BISA-218 RC; CARB100S GT; DIAZ2.5K PO; DOXY-690 GT; FAMO-90 GT; IBUP200C15 GT; LAM200 GT; LISI5TAB18 GT; METO25TA14 GT; METO5TAB4 GT; MIRABULK GT; MOM GT; NYST100022 GT/PO; NYST100022 SUBQ; PHEN20EL30 GT; PRON INH; ROBAC GT; SIME80TA41 GT; SODI100076 GT; SULF-58 GT; TIZA4CAP GT; VIT500LI GT; ZINC220T3 GT; [UNRECOGNIZED DRUG - CODE] GT; [UNRECOGNIZED DRUG - CODE] GT
[2023-01-12 08:18] VITALS: BP 108/67; PULSE 74; RESP 18; TEMP 97.4; O2SAT 96
[2023-01-12 09:52] LABS: BASOPHILS % (AUTO) 0.5 % (0.0-2.0); EOSINOPHILS # (AUTO) 0.2 K/uL (0-0.4); EOSINOPHILS % (AUTO) 2.3 % (0.0-4.0); HEMATOCRIT 36.7 % (36-48); HEMOGLOBIN 12.5 g/dL (12.0-16.0); LYMPHOCYTES # (AUTO) 0.9 K/uL (2.5-16.5); LYMPHOCYTES % (AUTO) 10.2 % (20.5-51.1); MEAN CORPUSCULAR HEMOGLOBIN 32 pg (27-31); MEAN CORPUSCULAR HGB CONC 34 g/dL (33-37); MEAN CORPUSCULAR VOLUME 93.7 fL (80-94); MONOCYTES # (AUTO) 0.5 K/uL (0.8-1.0); MONOCYTES % (AUTO) 5.6 % (1.7-9.3); NEUTROPHILS # (AUTO) 7.4 K/uL (1.8-7.7); NEUTROPHILS % (AUTO) 81.4 % (42.2-75.2); PLATELET COUNT (AUTO) 275 K/uL (140-450); RED BLOOD CELL COUNT(AUTO) 3.92 MIL/uL (4.20-5.40); RED CELL DISTRIBUTION WIDTH 13.8 % (11.6-13.7); WHITE BLOOD COUNT (AUTO) 9.1 K/uL (4.8-10.8)
[2023-01-12 10:05] LABS: ALBUMIN 3.4 g/dL (3.4-5.0); ANION GAP 11.6 (8-16); CALCIUM 8.8 mg/dL (8.5-10.1); CARBON DIOXIDE 27.6 mmol/L (21-32); CREATININE 0.4 mg/dL (0.6-1.3); POTASSIUM 3.2 mmol/L (3.5-5.1); TOTAL BILIRUBIN 0.5 mg/dL (0.0-1.0); TOTAL PROTEIN, SERUM 8.6 g/dL (6.4-8.2)
[2023-01-12 10:51] VITALS: O2SAT 96
[2023-01-12 11:20] LABS: APPEARANCE,URINE CLEAR (CLEAR); BILIRUBIN,URINE 1+ (NEGATIVE); BLOOD, URINE 1+ (NEGATIVE); COLOR,URINE YELLOW (YELLOW); LEUKOCYTE ESTERASE ,URINE 2+ (NEGATIVE); NITRITE, URINE NEGATIVE (NEGATIVE); PROTEIN,URINE 1+ (NEGATIVE); UGLUCOSE NEGATIVE (NEGATIVE); UROBILINOGEN,URINE 0.2 EU/dL (0.2 - 1)
[2023-01-12 11:29] LABS: ICTOTEST NEGATIVE (NEGATIVE)
[2023-01-12 11:31] LABS: BACTERIA,URINE 10-30 (MOD) /HPF (None Seen); SQUAMOUS EPITHELIAL CELL,UR 4-10 (MOD) /LPF (0-3 (FEW))
[2023-01-12 11:32] LABS: MUCUS,URINE 1+ /LPF (None Seen)
[2023-01-12] MEDS ORDERED: PIPERACILLIN/TAZOBACTAM 3.375 GM in DEXTROSE 5% 50 ML IV ONE (12:45)
[2023-01-12 12:51] VITALS: O2SAT 96
[2023-01-12] MEDS ORDERED: PIPERACILLIN/TAZOBACTAM 2.25 GM VIAL IV ONE (12:54)
[2023-01-12] MEDS ORDERED: PIPERACILLIN/TAZOBACTAM 3.375 GM VIAL IV ONE (13:09)
[2023-01-12] MEDS: SENNA 8.6 MG TAB GT SCH ×2 (13:25→21:01)
[2023-01-12] MEDS: POLYETHYLENE GLYCOL 17 GM/PKT GT SCH ×2 (13:25→21:00)
[2023-01-12] MEDS ORDERED: SODIUM PHOSPHATE 118 ML ENEM RC SCH (13:25)
[2023-01-12] MEDS ORDERED: LEVOFLOXACIN 750 MG/D5W PREMIX 150 ML IV SCH (13:30)
[2023-01-12] MEDS ORDERED: METOCLOPRAMIDE 10 MG/2 ML INJ VIAL IVP PRN (13:40)
[2023-01-12] MEDS ORDERED: MORPHINE SULFATE 4 MG/ML SYR IVP PRN (13:40)
[2023-01-12] MEDS ORDERED: MAG SULF 2000 MG/WATER PREMIX 50 ML IV PRN (13:40)
[2023-01-12] MEDS ORDERED: POTASSIUM CHLORIDE 10 MEQ TABER PO PRN (13:40)
[2023-01-12] MEDS ORDERED: MORPHINE SULFATE 2 MG/ML SYR IVP PRN (13:40)
[2023-01-12] MEDS ORDERED: KCL 20 MEQ IN 100 mL PREMIX 200 ML IV PRN (13:40)
[2023-01-12] MEDS ORDERED: LORazepam 1 MG TAB PO PRN (13:40)
[2023-01-12] MEDS: DEXT 5% /NACL 0.9% 1,000 ML IV SCH (14:53)
[2023-01-12] MEDS ORDERED: LORazepam 2 MG/ML VIAL IVP PRN (15:00)
[2023-01-12] MEDS ORDERED: POTASSIUM CHLORIDE 20% 40 MEQ/15 ML UDC GT STA (16:28)
[2023-01-12 18:00] VITALS: RESP 18; O2SAT 96
[2023-01-12 20:00] VITALS: BP 111/69; PULSE 98; RESP 16; TEMP 97.8; O2SAT 94
[2023-01-12] MEDS: ZOLPIDEM 5 MG TAB PO PRN (21:01)
[2023-01-13 04:00] VITALS: BP 104/71; PULSE 76; RESP 17; TEMP 98; O2SAT 97
[2023-01-13 05:24] LABS: BASOPHILS % (AUTO) 0.6 % (0.0-2.0); EOSINOPHILS # (AUTO) 0.4 K/uL (0-0.4); EOSINOPHILS % (AUTO) 5.4 % (0.0-4.0); HEMATOCRIT 38.8 % (36-48); HEMOGLOBIN 13.2 g/dL (12.0-16.0); LYMPHOCYTES # (AUTO) 1.5 K/uL (2.5-16.5); MEAN CORPUSCULAR HEMOGLOBIN 32 pg (27-31); MEAN CORPUSCULAR HGB CONC 34 g/dL (33-37); MEAN CORPUSCULAR VOLUME 93.9 fL (80-94); MONOCYTES # (AUTO) 0.6 K/uL (0.8-1.0); MONOCYTES % (AUTO) 7.5 % (1.7-9.3); NEUTROPHILS # (AUTO) 5.3 K/uL (1.8-7.7); NEUTROPHILS % (AUTO) 67.5 % (42.2-75.2); PLATELET COUNT (AUTO) 264 K/uL (140-450); RED BLOOD CELL COUNT(AUTO) 4.13 MIL/uL (4.20-5.40); RED CELL DISTRIBUTION WIDTH 14.1 % (11.6-13.7); WHITE BLOOD COUNT (AUTO) 7.8 K/uL (4.8-10.8)
[2023-01-13 05:59] LABS: CALCIUM 8.7 mg/dL (8.5-10.1); CARBON DIOXIDE 26.1 mmol/L (21-32); CREATININE 0.4 mg/dL (0.6-1.3); POTASSIUM 4.1 mmol/L (3.5-5.1)
[2023-01-13] MEDS: DEXT 5% /NACL 0.9% 1,000 ML IV SCH ×2 (06:37→23:00)
[2023-01-13] MEDS ORDERED: PIPERACILLIN/TAZOBACTAM 3.375 GM in DEXTROSE 5% 50 ML IV SCH (07:37)
[2023-01-13 08:00] VITALS: BP 109/70; PULSE 81; RESP 16; TEMP 98.5; O2SAT 98
[2023-01-13 08:44] VITALS: PULSE 81; RESP 18; O2SAT 98
[2023-01-13] MEDS: SENNA 8.6 MG TAB GT SCH ×2 (09:00→21:00)
[2023-01-13] MEDS: POLYETHYLENE GLYCOL 17 GM/PKT GT SCH ×2 (09:00→21:00)
[2023-01-13] MEDS: ENOXAPARIN 40 MG/0.4 ML SYR SUBQ SCH (09:45)
[2023-01-13] MEDS: METOPROLOL 25 MG TAB GT SCH (09:45)
[2023-01-13] MEDS: PIPERACILLIN/TAZOBACTAM 3.375 GM in DEXTROSE 5% 50 ML IV SCH ×3 (12:32→23:39)
[2023-01-13 16:00] VITALS: BP 103/61; PULSE 89; RESP 20; TEMP 98.4; O2SAT 97
[2023-01-13] MEDS ORDERED: FOAM DRESSING TP PRN (16:30)
[2023-01-13] MEDS: FOAM DRESSING TP SCH (17:30)
[2023-01-13] MEDS: Z-GUARD PASTE TP SCH (17:30)
[2023-01-13 20:00] VITALS: PULSE 85; RESP 17; O2SAT 97
[2023-01-13] MEDS: ZOLPIDEM 5 MG TAB PO PRN (21:04)
[2023-01-14] MEDS: Z-GUARD PASTE TP SCH ×2 (01:00→13:36)
[2023-01-14 04:00] VITALS: BP 116/65; PULSE 52; RESP 17; TEMP 97.2; O2SAT 100
[2023-01-14] MEDS: PIPERACILLIN/TAZOBACTAM 3.375 GM in DEXTROSE 5% 50 ML IV SCH ×4 (05:06→23:43)
[2023-01-14 06:14] LABS: BASOPHILS % (AUTO) 0.8 % (0.0-2.0); EOSINOPHILS # (AUTO) 0.4 K/uL (0-0.4); EOSINOPHILS % (AUTO) 6.9 % (0.0-4.0); HEMATOCRIT 35.4 % (36-48); LYMPHOCYTES # (AUTO) 1.4 K/uL (2.5-16.5); LYMPHOCYTES % (AUTO) 22.9 % (20.5-51.1); MEAN CORPUSCULAR HEMOGLOBIN 32 pg (27-31); MEAN CORPUSCULAR HGB CONC 34 g/dL (33-37); MEAN CORPUSCULAR VOLUME 93.6 fL (80-94); MONOCYTES # (AUTO) 0.3 K/uL (0.8-1.0); MONOCYTES % (AUTO) 5.5 % (1.7-9.3); NEUTROPHILS % (AUTO) 63.9 % (42.2-75.2); PLATELET COUNT (AUTO) 274 K/uL (140-450); RED BLOOD CELL COUNT(AUTO) 3.78 MIL/uL (4.20-5.40); RED CELL DISTRIBUTION WIDTH 13.8 % (11.6-13.7); WHITE BLOOD COUNT (AUTO) 6.3 K/uL (4.8-10.8)
[2023-01-14 06:46] LABS: ANION GAP 9.3 (8-16); CALCIUM 8.4 mg/dL (8.5-10.1); CARBON DIOXIDE 28.1 mmol/L (21-32); CREATININE 0.4 mg/dL (0.6-1.3); POTASSIUM 3.4 mmol/L (3.5-5.1)
[2023-01-14 08:00] VITALS: BP 102/66; PULSE 85; PULSE 86; RESP 17; RESP 18; TEMP 96.8; O2SAT 92; O2SAT 97
[2023-01-14] MEDS: POLYETHYLENE GLYCOL 17 GM/PKT GT SCH ×2 (10:05→21:25)
[2023-01-14] MEDS: SENNA 8.6 MG TAB GT SCH ×2 (10:08→21:25)
[2023-01-14] MEDS: METOPROLOL 25 MG TAB GT SCH (10:09)
[2023-01-14] MEDS: ENOXAPARIN 40 MG/0.4 ML SYR SUBQ SCH (10:09)
[2023-01-14 10:55] VITALS: TEMP 96.8
[2023-01-14] MEDS: FOAM DRESSING TP SCH (13:36)
[2023-01-14] MEDS: DEXT 5% /NACL 0.9% 1,000 ML IV SCH ×2 (15:40→18:44)
[2023-01-14] MEDS ORDERED: POTASSIUM CHLORIDE 20% 40 MEQ/15 ML UDC GT PRN (16:40)
[2023-01-14 20:00] VITALS: BP 101/69; PULSE 82; RESP 17; TEMP 97; O2SAT 95
[2023-01-14] MEDS: ZOLPIDEM 5 MG TAB PO PRN (21:27)
[2023-01-15] MEDS: Z-GUARD PASTE TP SCH ×2 (01:05→13:13)
[2023-01-15 04:00] VITALS: BP 114/68; PULSE 86; RESP 18; TEMP 99.9; O2SAT 96
[2023-01-15] MEDS: PIPERACILLIN/TAZOBACTAM 3.375 GM in DEXTROSE 5% 50 ML IV SCH ×3 (05:43→18:12)
[2023-01-15 06:00] LABS: BASOPHILS # (AUTO) 0.1 K/uL (0.00-0.22); BASOPHILS % (AUTO) 0.9 % (0.0-2.0); EOSINOPHILS # (AUTO) 0.4 K/uL (0-0.4); EOSINOPHILS % (AUTO) 6.3 % (0.0-4.0); HEMOGLOBIN 12.7 g/dL (12.0-16.0); LYMPHOCYTES # (AUTO) 1.6 K/uL (2.5-16.5); LYMPHOCYTES % (AUTO) 27.7 % (20.5-51.1); MEAN CORPUSCULAR HEMOGLOBIN 32 pg (27-31); MEAN CORPUSCULAR HGB CONC 34 g/dL (33-37); MEAN CORPUSCULAR VOLUME 94.2 fL (80-94); MONOCYTES # (AUTO) 0.3 K/uL (0.8-1.0); NEUTROPHILS # (AUTO) 3.4 K/uL (1.8-7.7); NEUTROPHILS % (AUTO) 59.1 % (42.2-75.2); PLATELET COUNT (AUTO) 280 K/uL (140-450); RED BLOOD CELL COUNT(AUTO) 3.93 MIL/uL (4.20-5.40); RED CELL DISTRIBUTION WIDTH 13.4 % (11.6-13.7); WHITE BLOOD COUNT (AUTO) 5.8 K/uL (4.8-10.8)
[2023-01-15 06:17] LABS: ANION GAP 13.2 (8-16); CALCIUM 8.4 mg/dL (8.5-10.1); CARBON DIOXIDE 25.6 mmol/L (21-32); CREATININE 0.3 mg/dL (0.6-1.3); POTASSIUM 3.8 mmol/L (3.5-5.1)
[2023-01-15 08:00] VITALS: BP 110/80; PULSE 77; RESP 18; TEMP 96.9; O2SAT 97
[2023-01-15 09:27] VITALS: PULSE 77; RESP 18; O2SAT 97
[2023-01-15] MEDS: SENNA 8.6 MG TAB GT SCH (09:49)
[2023-01-15] MEDS: POLYETHYLENE GLYCOL 17 GM/PKT GT SCH (09:50)
[2023-01-15] MEDS: METOPROLOL 25 MG TAB GT SCH (09:50)
[2023-01-15] MEDS: ENOXAPARIN 40 MG/0.4 ML SYR SUBQ SCH (09:53)
[2023-01-15] MEDS ORDERED: LEVO-481 GT (12:33)
[2023-01-15] MEDS: FOAM DRESSING TP SCH (13:13)
[2023-01-15 16:00] VITALS: BP 102/71; PULSE 76; RESP 18; TEMP 97.3; O2SAT 97
[2023-01-22] MEDS ORDERED: LEVA0.6335 INH (11:12)
== END 2023-01-15 18:55 | DRG 247 ==
LOC: MED 07:37 → OBSVTOIN 13:39 → MMU 13:39 → MTU 14:48
PROVIDERS: ADMIT Internal Medicine; ATTEND Internal Medicine
DX: K56.41 Fecal impaction (principal); I11.0 Hypertensive heart disease with heart failure; R53.2 Functional quadriplegia; I50.9 Heart failure, unspecified; T83.518A Infection and inflammatory reaction due to other urinary catheter, initial encounter; Z91.048 Other nonmedicinal substance allergy status; G40.909 Epilepsy, unspecified, not intractable, without status epilepticus; K63.89 Other specified diseases of intestine; N20.0 Calculus of kidney; R13.10 Dysphagia, unspecified; G80.9 Cerebral palsy, unspecified; Z79.899 Other long term (current) drug therapy; Z88.8 Allergy status to other drugs, medicaments and biological substances; Z93.1 Gastrostomy status; N39.0 Urinary tract infection, site not specified; B96.89 Other specified bacterial agents as the cause of diseases classified elsewhere
CPT/HCPCS: 36415; 74018; 80048; 80053; 81001; 81025; 83690; 83735; 85025; 87040; 87081; 87086; 96365; 99285; J1650; J2543; J7060

== ENCOUNTER 2023-01-22 06:26 | Inpatient (IN) | payer OTHER ==
[~2023-01-22] VITALS: Ht 157.5 cm; Wt 62.6 kg
[2023-01-22] VITALS (7 sets, daily range): BP systolic 105–130; BP diastolic 73–80; PULSE 68–111; RESP 19–20; TEMP 97.7–98.5; O2SAT 96–98
[~2023-01-22 06:26] MED LIST changes: -DOXY-690 GT; +LEVO-481 GT; -LISI5TAB18 GT
[2023-01-22] MEDS ORDERED: LORazepam 2 MG/ML VIAL IM ONE (07:45)
[2023-01-22 08:02] LABS: APPEARANCE,URINE CLEAR (CLEAR); BILIRUBIN,URINE NEGATIVE (NEGATIVE); BLOOD, URINE NEGATIVE (NEGATIVE); COLOR,URINE YELLOW (YELLOW); LEUKOCYTE ESTERASE ,URINE NEGATIVE (NEGATIVE); NITRITE, URINE NEGATIVE (NEGATIVE); PROTEIN,URINE NEGATIVE (NEGATIVE); UGLUCOSE NEGATIVE (NEGATIVE); UROBILINOGEN,URINE 0.2 EU/dL (0.2 - 1)
[2023-01-22] MEDS ORDERED: LORazepam 2 MG/ML VIAL IVP ONE (08:25)
[2023-01-22 08:48] LABS: BASOPHILS % (AUTO) 0.7 % (0.0-2.0); EOSINOPHILS # (AUTO) 0.1 K/uL (0-0.4); EOSINOPHILS % (AUTO) 1.4 % (0.0-4.0); HEMATOCRIT 35.2 % (36-48); HEMOGLOBIN 11.7 g/dL (12.0-16.0); LYMPHOCYTES # (AUTO) 0.7 K/uL (2.5-16.5); LYMPHOCYTES % (AUTO) 9.4 % (20.5-51.1); MEAN CORPUSCULAR HEMOGLOBIN 32 pg (27-31); MEAN CORPUSCULAR HGB CONC 33 g/dL (33-37); MEAN CORPUSCULAR VOLUME 95.9 fL (80-94); MONOCYTES # (AUTO) 0.5 K/uL (0.8-1.0); MONOCYTES % (AUTO) 6.6 % (1.7-9.3); NEUTROPHILS # (AUTO) 5.8 K/uL (1.8-7.7); NEUTROPHILS % (AUTO) 81.9 % (42.2-75.2); PLATELET COUNT (AUTO) 195 K/uL (140-450); RED BLOOD CELL COUNT(AUTO) 3.67 MIL/uL (4.20-5.40); RED CELL DISTRIBUTION WIDTH 13.7 % (11.6-13.7); WHITE BLOOD COUNT (AUTO) 7.1 K/uL (4.8-10.8)
[2023-01-22] MEDS ORDERED: AZITHROMYCIN 500 MG in DEXTROSE 5% 250 ML IV ONE (09:15)
[2023-01-22] MEDS ORDERED: AZITHROMYCIN 500 MG INJ VIAL IV ONE (09:18)
[2023-01-22 09:19] LABS: ALBUMIN 1.7 g/dL (3.4-5.0); ANION GAP 9.4 (8-16); CARBON DIOXIDE 20.2 mmol/L (21-32); CREATININE 0.2 mg/dL (0.6-1.3); TOTAL BILIRUBIN 0.2 mg/dL (0.0-1.0); TOTAL PROTEIN, SERUM 4.6 g/dL (6.4-8.2)
[2023-01-22 09:23] LABS: CALCIUM 5.3 mg/dL (8.5-10.1); POTASSIUM 2.6 mmol/L (3.5-5.1)
[2023-01-22] MEDS ORDERED: NACL 0.9% 1,000 ML IV ONE (09:25)
[2023-01-22] MEDS ORDERED: POTASSIUM CHL 20 MEQ/NACL 0.9% 1,000 ML IV ONE (09:35)
[2023-01-22 09:55] LABS: LACTIC ACID 1.3 mmol/L (0.4-2.0)
[2023-01-22] MEDS ORDERED: bisacodyL 10 MG SUPP RC PRN (10:10)
[2023-01-22] MEDS ORDERED: ALBUTEROL 0.083% 2.5 MG/3 ML NEBU INH PRN (10:10)
[2023-01-22] MEDS ORDERED: SIMETHICONE 80 MG TAB.CHEW GT SCH (10:10)
[2023-01-22] MEDS ORDERED: POLYETHYLENE GLYCOL 17 GM/PKT GT PRN ×2 (10:10→11:50)
[2023-01-22] MEDS ORDERED: SIMETHICONE 80 MG TAB.CHEW GT PRN (10:10)
[2023-01-22] MEDS ORDERED: ACETAMINOPHEN 325 MG TAB GT SCH (10:10)
[2023-01-22] MEDS ORDERED: MAGNESIUM OXIDE 400 MG TAB PO PRN (10:15)
[2023-01-22] MEDS ORDERED: MORPHINE SULFATE 4 MG/ML SYR IVP PRN (10:15)
[2023-01-22] MEDS ORDERED: KCL 20 MEQ IN 100 mL PREMIX 200 ML IV PRN (10:15)
[2023-01-22] MEDS ORDERED: MAG SULF 2000 MG/WATER PREMIX 50 ML IV PRN (10:15)
[2023-01-22] MEDS ORDERED: POTASSIUM CHLORIDE 10 MEQ TABER PO PRN (10:15)
[2023-01-22] MEDS ORDERED: ACETAMINOPHEN 325 MG TAB PO PRN (10:15)
[2023-01-22] MEDS: LACTATED RINGERS 1,000 ML IV SCH ×2 (10:15→22:45)
[2023-01-22] MEDS ORDERED: ONDANSETRON 4 MG/2 ML VIAL IVP PRN (10:15)
[2023-01-22] MEDS ORDERED: CALCIUM GLUC 1 GM/50 mL NS BAG 50 ML IV SCH (10:54)
[2023-01-22] MEDS ORDERED: METO-485 GT (11:12)
[2023-01-22] MEDS ORDERED: LEVA0.6327 INH (11:12)
[2023-01-22] MEDS ORDERED: DIAZ2.5G2 RC (11:12)
[2023-01-22] MEDS ORDERED: CARB200T1 PO (11:12)
[2023-01-22] MEDS ORDERED: LACO10SO3 GT (11:12)
[2023-01-22] MEDS ORDERED: PUL.5N NEB (11:12)
[2023-01-22] MEDS ORDERED: PRO5 GT (11:12)
[2023-01-22] MEDS ORDERED: ASPI-1749 PO (11:12)
[2023-01-22] MEDS ORDERED: FAMO-90 GT (11:12)
[2023-01-22] MEDS ORDERED: FURO-572 GT (11:12)
[2023-01-22] MEDS ORDERED: DIAZ2TAB6 GT (11:12)
[2023-01-22] MEDS ORDERED: FLEPED RC (11:12)
[2023-01-22] MEDS ORDERED: METO25TE2 GT (11:12)
[2023-01-22] MEDS ORDERED: LISI2.5T12 GT (11:12)
[2023-01-22] MEDS ORDERED: MAGN400S60 GT (11:12)
[2023-01-22] MEDS ORDERED: MULT-2253 GT (11:12)
[2023-01-22] MEDS ORDERED: PHEN20EL30 GT (11:12)
[2023-01-22] MEDS ORDERED: BACL10TA4 PO (11:12)
[2023-01-22] MEDS ORDERED: SODIUM CHLORIDE 1 GM TAB GT SCH (13:00)
[2023-01-22 13:29] LABS: MAGNESIUM 1.4 mg/dL (1.8-2.4); PHOSPHORUS 2.5 mg/dL (2.5-4.9)
[2023-01-22 14:07] LABS: ANION GAP 11.8 (8-16); CALCIUM 9.1 mg/dL (8.5-10.1); CARBON DIOXIDE 26.5 mmol/L (21-32); CREATININE 0.4 mg/dL (0.6-1.3); POTASSIUM 4.3 mmol/L (3.5-5.1)
[2023-01-22] MEDS: BACLOFEN 10 MG TAB GT SCH ×2 (17:00→18:52)
[2023-01-22] MEDS: tiZANidine 4 MG TAB PO SCH (18:52)
[2023-01-22] MEDS ORDERED: DIAZEPAM PO SCH (21:00)
[2023-01-22] MEDS ORDERED: guaiFENesin/CODEINE 100/10MG 5 ML UDC GT SCH (21:00)
[2023-01-22] MEDS: SODIUM PHOS / POTASSIUM PHOS 1 PKT PDR GT SCH (21:52)
[2023-01-22] MEDS: CALCIUM CARB/VIT-D 500 MG/200 IU 1 TAB PO SCH (21:53)
[2023-01-22] MEDS: SODIUM BICARBONATE 650 MG TAB PO SCH (21:54)
[2023-01-22] MEDS: diazePAM 2 MG TAB PO SCH (21:55)
[2023-01-23] VITALS: BP 100/60; PULSE 100; PULSE 119; RESP 20; TEMP 98.3; O2SAT 96
[2023-01-23] MEDS: tiZANidine 4 MG TAB PO SCH ×2 (03:11→05:00)
[2023-01-23 04:00] VITALS: BP 99/59; PULSE 109; RESP 20; TEMP 98.8; O2SAT 95
[2023-01-23 06:53] LABS: BASOPHILS # (AUTO) 0.1 K/uL (0.00-0.22); EOSINOPHILS # (AUTO) 0.3 K/uL (0-0.4); EOSINOPHILS % (AUTO) 5.2 % (0.0-4.0); HEMATOCRIT 32.9 % (36-48); HEMOGLOBIN 11.4 g/dL (12.0-16.0); LYMPHOCYTES # (AUTO) 0.6 K/uL (2.5-16.5); LYMPHOCYTES % (AUTO) 9.6 % (20.5-51.1); MEAN CORPUSCULAR HEMOGLOBIN 32 pg (27-31); MEAN CORPUSCULAR HGB CONC 35 g/dL (33-37); MEAN CORPUSCULAR VOLUME 92.8 fL (80-94); MONOCYTES # (AUTO) 0.7 K/uL (0.8-1.0); MONOCYTES % (AUTO) 11.4 % (1.7-9.3); NEUTROPHILS # (AUTO) 4.2 K/uL (1.8-7.7); NEUTROPHILS % (AUTO) 72.8 % (42.2-75.2); PLATELET COUNT (AUTO) 210 K/uL (140-450); RED BLOOD CELL COUNT(AUTO) 3.54 MIL/uL (4.20-5.40); RED CELL DISTRIBUTION WIDTH 13.3 % (11.6-13.7); WHITE BLOOD COUNT (AUTO) 5.8 K/uL (4.8-10.8)
[2023-01-23 07:18] LABS: ALBUMIN 2.9 g/dL (3.4-5.0); ANION GAP 9.1 (8-16); CALCIUM 8.3 mg/dL (8.5-10.1); CARBON DIOXIDE 27.5 mmol/L (21-32); CREATININE 0.4 mg/dL (0.6-1.3); MAGNESIUM 2.1 mg/dL (1.8-2.4); PHOSPHORUS 3.6 mg/dL (2.5-4.9); POTASSIUM 3.6 mmol/L (3.5-5.1); TOTAL BILIRUBIN 0.5 mg/dL (0.0-1.0); TOTAL PROTEIN, SERUM 7.7 g/dL (6.4-8.2)
[2023-01-23] MEDS ORDERED: bisacodyL 10 MG SUPP RC PRN (07:18)
[2023-01-23] MEDS ORDERED: guaiFENesin/CODEINE 100/10MG 5 ML UDC GT PRN (07:18)
[2023-01-23 07:50] VITALS: O2SAT 99
[2023-01-23 08:00] VITALS: PULSE 98; RESP 20; TEMP 97.1; O2SAT 99
[2023-01-23] MEDS ORDERED: FAMOTIDINE 20 MG TAB GT SCH (09:00)
[2023-01-23] MEDS ORDERED: DOCUSATE 100 MG/10 ML UDC GT SCH (09:00)
[2023-01-23] MEDS ORDERED: METOPROLOL 25 MG TAB GT SCH (09:00)
[2023-01-23] MEDS: SODIUM PHOS / POTASSIUM PHOS 1 PKT PDR GT SCH (09:00)
[2023-01-23] MEDS ORDERED: MAGNESIUM HYDROXIDE 2400 MG/30 ML UDC GT SCH (09:00)
[2023-01-23] MEDS ORDERED: FOAM DRESSING TP PRN (10:10)
[2023-01-23] MEDS: SODIUM BICARBONATE 650 MG TAB PO SCH (10:27)
[2023-01-23] MEDS: CALCIUM CARB/VIT-D 500 MG/200 IU 1 TAB PO SCH (10:28)
[2023-01-23] MEDS: BACLOFEN 10 MG TAB GT SCH (10:30)
[2023-01-23] MEDS: diazePAM 2 MG TAB PO SCH (10:30)
[2023-01-23] MEDS: LACTATED RINGERS 1,000 ML IV SCH (10:49)
[2023-01-23] MEDS ORDERED: Z-GUARD PASTE TP SCH (13:00)
[2023-01-23] MEDS ORDERED: FOAM DRESSING TP SCH (13:00)
[2023-01-23 15:07] LABS: VITAMIN D, 25-HYDROXY 68.2 ng/mL (30.0-100.0)
== END 2023-01-23 12:50 | DRG 53 ==
LOC: MED 06:26 → MTU 10:18
PROVIDERS: ADMIT Hospitalist; ATTEND Hospitalist
DX: G40.909 Epilepsy, unspecified, not intractable, without status epilepticus (principal); J96.01 Acute respiratory failure with hypoxia; J69.0 Pneumonitis due to inhalation of food and vomit; E87.20 Acidosis, unspecified; E83.51 Hypocalcemia; R65.10 Systemic inflammatory response syndrome (SIRS) of non-infectious origin without acute organ dysfunction; K59.09 Other constipation; D64.9 Anemia, unspecified; E87.6 Hypokalemia; Z88.8 Allergy status to other drugs, medicaments and biological substances; Z79.899 Other long term (current) drug therapy; Z93.1 Gastrostomy status
CPT/HCPCS: 36415; 71045; 80048; 80053; 81003; 82306; 82330; 83605; 83735; 83880; 84100; 84133; 84484; 85025; 87081; 93005; 96365; 96375; 99285; J0456; J0610; J2060; J3475; J7030

== ENCOUNTER 2023-02-28 15:53 | Inpatient (IN) | payer OTHER ==
[~2023-02-28] VITALS: Ht 162.6 cm; Wt 72.6 kg
[2023-02-28] MEDS: LACTATED RINGERS 1,000 ML IV SCH
[~2023-02-28 15:53] MED LIST changes: +ASPI-1749 PO; +DIAZ2.5G2 RC; +FURO-572 GT; -IBUP200C15 GT; +LACO10SO3 GT; +LEVA0.6327 INH; +LISI2.5T12 GT; +METO-485 GT; -METO5TAB4 GT; +MULT-2253 GT; -NYST100022 GT/PO; +PUL.5N NEB; -SODI100076 GT; -SULF-58 GT; -[UNRECOGNIZED DRUG - CODE] GT
[2023-02-28 16:25] VITALS: BP 104/66; PULSE 84; RESP 20; TEMP 98.7; O2SAT 95
[2023-02-28 16:30] VITALS: O2SAT 91
[2023-02-28] MEDS ORDERED: BACITRACIN OINT 500 UNITS/GM PKT TP ONE ×2 (17:00→19:35)
[2023-02-28 19:40] LABS: BASOPHILS # (AUTO) 0.1 K/uL (0.00-0.22); BASOPHILS % (AUTO) 0.7 % (0.0-2.0); EOSINOPHILS # (AUTO) 0.3 K/uL (0-0.4); EOSINOPHILS % (AUTO) 2.8 % (0.0-4.0); HEMATOCRIT 37.3 % (36-48); HEMOGLOBIN 12.7 g/dL (12.0-16.0); LYMPHOCYTES % (AUTO) 19.2 % (20.5-51.1); MEAN CORPUSCULAR HEMOGLOBIN 32 pg (27-31); MEAN CORPUSCULAR HGB CONC 34 g/dL (33-37); MONOCYTES # (AUTO) 0.9 K/uL (0.8-1.0); MONOCYTES % (AUTO) 8.7 % (1.7-9.3); NEUTROPHILS % (AUTO) 68.6 % (42.2-75.2); PLATELET COUNT (AUTO) 281 K/uL (140-450); RED BLOOD CELL COUNT(AUTO) 3.93 MIL/uL (4.20-5.40); RED CELL DISTRIBUTION WIDTH 13.6 % (11.6-13.7); WHITE BLOOD COUNT (AUTO) 10.2 K/uL (4.8-10.8)
[2023-02-28] MEDS ORDERED: SODIUM PHOSPHATE 118 ML ENEM RC ONE (19:40)
[2023-02-28] MEDS ORDERED: GLYCERIN ADULT 1 SUPP RC ONE ×2 (19:40→22:01)
[2023-02-28 20:28] LABS: APPEARANCE,URINE HAZY (CLEAR); BILIRUBIN,URINE NEGATIVE (NEGATIVE); BLOOD, URINE NEGATIVE (NEGATIVE); COLOR,URINE YELLOW (YELLOW); LEUKOCYTE ESTERASE ,URINE 3+ (NEGATIVE); NITRITE, URINE POSITIVE (NEGATIVE); PH,URINE 7.5 (5.0-9.0); PROTEIN,URINE TRACE (NEGATIVE); UGLUCOSE NEGATIVE (NEGATIVE)
[2023-02-28 20:29] LABS: BACTERIA,URINE 2+ /HPF (None Seen); MUCUS,URINE 2+ /LPF (None Seen); RBC,URINE 0-5 /HPF (0-5); SQUAMOUS EPITHELIAL CELL,UR 4-10 (MOD) /LPF (0-3 (FEW)); WBC,URINE 60-80 /HPF (0-5); YEAST,URINE None Seen /HPF (None Seen)
[2023-02-28 20:30] LABS: TRICHOMONAS,URINE None Seen /HPF (None Seen); WHITE BLOOD CELL CASTS,URINE 0-3 /LPF (None Seen)
[2023-02-28] MEDS ORDERED: PIPERACILLIN/TAZOBACTAM 3.375 GM in DEXTROSE 5% 50 ML IV ONE (20:30)
[2023-02-28] MEDS ORDERED: MIDO2.5T PO (20:46)
[2023-02-28 21:10] LABS: ALBUMIN 3.3 g/dL (3.4-5.0); ANION GAP 13.4 (8-16); CALCIUM 9.7 mg/dL (8.5-10.1); CARBON DIOXIDE 29.7 mmol/L (21-32); CREATININE 0.3 mg/dL (0.6-1.3); POTASSIUM 4.1 mmol/L (3.5-5.1); TOTAL BILIRUBIN 0.3 mg/dL (0.0-1.0); TOTAL PROTEIN, SERUM 8.6 g/dL (6.4-8.2)
[2023-02-28] MEDS ORDERED: LORazepam 1 MG TAB PO PRN (21:25)
[2023-02-28] MEDS ORDERED: ONDANSETRON 4 MG/2 ML VIAL IVP PRN (21:25)
[2023-02-28] MEDS ORDERED: ZOLPIDEM 5 MG TAB PO PRN (21:25)
[2023-02-28] MEDS ORDERED: HYDROcodone/APAP 5/325 MG 1 TAB TAB PO PRN (21:25)
[2023-02-28] MEDS ORDERED: NACL 0.9% 500 ML IV ONE (21:50)
[2023-02-28] MEDS ORDERED: PIPERACILLIN/TAZOBACTAM 3.375 GM VIAL IV ONE (22:00)
[2023-02-28 22:45] VITALS: BP 91/58; PULSE 81; RESP 18; TEMP 97; O2SAT 97
[2023-03-01 04:00] VITALS: BP 90/60; PULSE 70; RESP 18; TEMP 97.3; O2SAT 98
[2023-03-01 05:41] LABS: BASOPHILS # (AUTO) 0.1 K/uL (0.00-0.22); BASOPHILS % (AUTO) 0.7 % (0.0-2.0); EOSINOPHILS # (AUTO) 0.4 K/uL (0-0.4); EOSINOPHILS % (AUTO) 3.8 % (0.0-4.0); HEMATOCRIT 34.7 % (36-48); HEMOGLOBIN 11.7 g/dL (12.0-16.0); LYMPHOCYTES % (AUTO) 20.8 % (20.5-51.1); MEAN CORPUSCULAR HEMOGLOBIN 32 pg (27-31); MEAN CORPUSCULAR HGB CONC 34 g/dL (33-37); MEAN CORPUSCULAR VOLUME 95.4 fL (80-94); MONOCYTES # (AUTO) 0.8 K/uL (0.8-1.0); MONOCYTES % (AUTO) 8.9 % (1.7-9.3); NEUTROPHILS # (AUTO) 6.2 K/uL (1.8-7.7); NEUTROPHILS % (AUTO) 65.8 % (42.2-75.2); PLATELET COUNT (AUTO) 252 K/uL (140-450); RED BLOOD CELL COUNT(AUTO) 3.64 MIL/uL (4.20-5.40); RED CELL DISTRIBUTION WIDTH 13.6 % (11.6-13.7); WHITE BLOOD COUNT (AUTO) 9.4 K/uL (4.8-10.8)
[2023-03-01 05:56] LABS: ALBUMIN 3.1 g/dL (3.4-5.0); ANION GAP 13.7 (8-16); CALCIUM 9.2 mg/dL (8.5-10.1); CARBON DIOXIDE 26.7 mmol/L (21-32); CREATININE 0.3 mg/dL (0.6-1.3); MAGNESIUM 1.9 mg/dL (1.8-2.4); PHOSPHORUS 3.7 mg/dL (2.5-4.9); POTASSIUM 3.4 mmol/L (3.5-5.1); TOTAL BILIRUBIN 0.4 mg/dL (0.0-1.0); TOTAL PROTEIN, SERUM 8.2 g/dL (6.4-8.2)
[2023-03-01] MEDS: PIPERACILLIN/TAZOBACTAM 3.375 GM in DEXTROSE 5% 50 ML IV SCH ×6 (06:00→23:53)
[2023-03-01 08:00] VITALS: BP 91/58; PULSE 75; RESP 18; TEMP 97.4; O2SAT 98
[2023-03-01] MEDS ORDERED: POLYETHYLENE GLYCOL 17 GM/PKT GT PRN (08:55)
[2023-03-01] MEDS ORDERED: BUDESONIDE 0.5 MG/2 ML NEBU INH SCH (09:00)
[2023-03-01] MEDS ORDERED: POTASSIUM CHLORIDE 20% 40 MEQ/15 ML UDC GT SCH (09:00)
[2023-03-01] MEDS: METOPROLOL 25 MG TAB GT SCH (09:00)
[2023-03-01] MEDS ORDERED: DOCUSATE SODIUM 100 MG GELCAP PO SCH (09:00)
[2023-03-01] MEDS: LACOSAMIDE 10 MG/ML GT SCH ×2 (09:00→21:43)
[2023-03-01] MEDS ORDERED: SODIUM PHOSPHATE 118 ML ENEM RC SCH (09:12)
[2023-03-01] MEDS: FAMOTIDINE 20 MG TAB GT SCH (10:11)
[2023-03-01] MEDS: METOCLOPRAMIDE 10 MG/10 ML SYRP UDC GT SCH ×3 (10:15→17:26)
[2023-03-01] MEDS ORDERED: DOCUSATE 100 MG/10 ML UDC GT SCH (10:23)
[2023-03-01] MEDS ORDERED: FOAM DRESSING TP PRN (12:25)
[2023-03-01] MEDS ORDERED: ALGINATE ROPE MC PRN (12:25)
[2023-03-01] MEDS: LACTATED RINGERS 1,000 ML IV SCH (13:03)
[2023-03-01] MEDS: FOAM DRESSING TP SCH (13:03)
[2023-03-01] MEDS: HYDRAGUARD CREAM TP SCH (15:13)
[2023-03-01 16:00] VITALS: BP 97/48; PULSE 88; RESP 18; TEMP 98.5; O2SAT 95
[2023-03-01 20:00] VITALS: BP 99/57; PULSE 96; RESP 18; TEMP 98.9; O2SAT 97
[2023-03-01 20:06] VITALS: O2SAT 94
[2023-03-02] MEDS: HYDRAGUARD CREAM TP SCH ×2 (01:11→13:17)
[2023-03-02] MEDS: LACTATED RINGERS 1,000 ML IV SCH ×3 (02:02→20:54)
[2023-03-02 05:27] LABS: BASOPHILS # (AUTO) 0.1 K/uL (0.00-0.22); BASOPHILS % (AUTO) 0.7 % (0.0-2.0); EOSINOPHILS # (AUTO) 0.3 K/uL (0-0.4); EOSINOPHILS % (AUTO) 4.2 % (0.0-4.0); HEMATOCRIT 36.4 % (36-48); HEMOGLOBIN 12.3 g/dL (12.0-16.0); LYMPHOCYTES # (AUTO) 1.6 K/uL (2.5-16.5); LYMPHOCYTES % (AUTO) 19.5 % (20.5-51.1); MEAN CORPUSCULAR HEMOGLOBIN 32 pg (27-31); MEAN CORPUSCULAR HGB CONC 34 g/dL (33-37); MEAN CORPUSCULAR VOLUME 95.2 fL (80-94); MONOCYTES # (AUTO) 0.6 K/uL (0.8-1.0); MONOCYTES % (AUTO) 7.1 % (1.7-9.3); NEUTROPHILS # (AUTO) 5.5 K/uL (1.8-7.7); NEUTROPHILS % (AUTO) 68.5 % (42.2-75.2); PLATELET COUNT (AUTO) 265 K/uL (140-450); RED BLOOD CELL COUNT(AUTO) 3.83 MIL/uL (4.20-5.40); RED CELL DISTRIBUTION WIDTH 13.4 % (11.6-13.7); WHITE BLOOD COUNT (AUTO) 8.1 K/uL (4.8-10.8)
[2023-03-02] MEDS: PIPERACILLIN/TAZOBACTAM 3.375 GM in DEXTROSE 5% 50 ML IV SCH ×4 (05:36→23:19)
[2023-03-02 06:49] LABS: ALBUMIN 3.2 g/dL (3.4-5.0); ANION GAP 12.4 (8-16); CALCIUM 9.2 mg/dL (8.5-10.1); CARBON DIOXIDE 26.8 mmol/L (21-32); CREATININE 0.5 mg/dL (0.6-1.3); MAGNESIUM 1.7 mg/dL (1.8-2.4); PHOSPHORUS 4.5 mg/dL (2.5-4.9); POTASSIUM 3.2 mmol/L (3.5-5.1); TOTAL BILIRUBIN 0.3 mg/dL (0.0-1.0); TOTAL PROTEIN, SERUM 8.6 g/dL (6.4-8.2)
[2023-03-02 07:28] VITALS: PULSE 97; RESP 16; O2SAT 94
[2023-03-02] MEDS: BUDESONIDE 0.5 MG/2 ML NEBU INH SCH (07:28)
[2023-03-02 08:00] VITALS: BP 106/65; PULSE 95; RESP 18; TEMP 98.5; O2SAT 96
[2023-03-02] MEDS ORDERED: bisacodyL 10 MG SUPP RC PRN (08:10)
[2023-03-02] MEDS ORDERED: POLYETHYLENE GLYCOL 17 GM/PKT GT SCH (09:00)
[2023-03-02] MEDS: METOCLOPRAMIDE 10 MG/10 ML SYRP UDC GT SCH ×3 (09:33→17:34)
[2023-03-02] MEDS: FAMOTIDINE 20 MG TAB GT SCH (09:34)
[2023-03-02] MEDS: METOPROLOL 25 MG TAB GT SCH (09:34)
[2023-03-02] MEDS: DOCUSATE 100 MG/10 ML UDC GT SCH ×2 (09:35→21:05)
[2023-03-02] MEDS: LACTULOSE 20 GM/30 ML UDC PO SCH ×3 (09:35→17:32)
[2023-03-02] MEDS: LACOSAMIDE 10 MG/ML GT SCH ×2 (10:13→21:07)
[2023-03-02] MEDS ORDERED: MAG SULF 2000 MG/WATER PREMIX 50 ML IV SCH (10:20)
[2023-03-02] MEDS: POLYETHYLENE GLYCOL 17 GM/PKT PO SCH (10:55)
[2023-03-02] MEDS ORDERED: POTASSIUM CHLORIDE 40 MEQ, LIDOCAINE 1% 25 MG in NACL 0.9% 250 ML IV SCH (11:00)
[2023-03-02] MEDS: FOAM DRESSING TP SCH (13:17)
[2023-03-02 16:00] VITALS: BP 105/63; PULSE 95; RESP 18; TEMP 98.5; O2SAT 96
[2023-03-02 19:44] VITALS: O2SAT 94
[2023-03-02 20:00] VITALS: BP 109/72; PULSE 109; RESP 16; RESP 18; TEMP 99.2; O2SAT 95; O2SAT 96
[2023-03-02] MEDS ORDERED: CHLORHEXADINE GLUC 2% CLOTH TP SCH (22:05)
[2023-03-02] MEDS ORDERED: MUPIROCIN CA NASAL 2% 1GM TUBE NS SCH (22:05)
[2023-03-03] MEDS: HYDRAGUARD CREAM TP SCH ×2 (01:19→12:07)
[2023-03-03 04:00] VITALS: BP 105/78; PULSE 96; RESP 18; TEMP 98; O2SAT 96
[2023-03-03 05:04] LABS: BASOPHILS # (AUTO) 0.1 K/uL (0.00-0.22); EOSINOPHILS # (AUTO) 0.2 K/uL (0-0.4); EOSINOPHILS % (AUTO) 2.4 % (0.0-4.0); HEMATOCRIT 34.9 % (36-48); HEMOGLOBIN 11.7 g/dL (12.0-16.0); LYMPHOCYTES # (AUTO) 1.6 K/uL (2.5-16.5); LYMPHOCYTES % (AUTO) 17.4 % (20.5-51.1); MEAN CORPUSCULAR HEMOGLOBIN 32 pg (27-31); MEAN CORPUSCULAR HGB CONC 34 g/dL (33-37); MEAN CORPUSCULAR VOLUME 95.9 fL (80-94); MONOCYTES # (AUTO) 0.5 K/uL (0.8-1.0); MONOCYTES % (AUTO) 5.8 % (1.7-9.3); NEUTROPHILS # (AUTO) 6.7 K/uL (1.8-7.7); NEUTROPHILS % (AUTO) 73.4 % (42.2-75.2); PLATELET COUNT (AUTO) 279 K/uL (140-450); RED BLOOD CELL COUNT(AUTO) 3.64 MIL/uL (4.20-5.40); RED CELL DISTRIBUTION WIDTH 13.3 % (11.6-13.7); WHITE BLOOD COUNT (AUTO) 9.1 K/uL (4.8-10.8)
[2023-03-03] MEDS: PIPERACILLIN/TAZOBACTAM 3.375 GM in DEXTROSE 5% 50 ML IV SCH ×2 (05:16→12:01)
[2023-03-03 05:39] LABS: ANION GAP 9.2 (8-16); CALCIUM 8.7 mg/dL (8.5-10.1); CARBON DIOXIDE 29.8 mmol/L (21-32); CREATININE 0.4 mg/dL (0.6-1.3); MAGNESIUM 1.8 mg/dL (1.8-2.4); PHOSPHORUS 2.6 mg/dL (2.5-4.9); TOTAL BILIRUBIN 0.4 mg/dL (0.0-1.0); TOTAL PROTEIN, SERUM 7.9 g/dL (6.4-8.2)
[2023-03-03] MEDS: DOCUSATE 100 MG/10 ML UDC GT SCH (08:01)
[2023-03-03] MEDS: LACTULOSE 20 GM/30 ML UDC PO SCH ×2 (08:01→12:13)
[2023-03-03] MEDS: POLYETHYLENE GLYCOL 17 GM/PKT PO SCH (08:02)
[2023-03-03 08:16] VITALS: PULSE 88; RESP 18; O2SAT 97
[2023-03-03] MEDS: BUDESONIDE 0.5 MG/2 ML NEBU INH SCH (08:16)
[2023-03-03] MEDS: METOCLOPRAMIDE 10 MG/10 ML SYRP UDC GT SCH ×2 (08:44→12:13)
[2023-03-03] MEDS: METOPROLOL 25 MG TAB GT SCH (08:45)
[2023-03-03] MEDS: FAMOTIDINE 20 MG TAB GT SCH (08:45)
[2023-03-03] MEDS ORDERED: POTASSIUM CHLORIDE 20% 40 MEQ/15 ML UDC GT SCH (08:56)
[2023-03-03] MEDS ORDERED: SENNA 8.6 MG TAB PO SCH (09:00)
[2023-03-03] MEDS ORDERED: VANCOMYCIN PER PHARMACY MC PRN (09:05)
[2023-03-03] MEDS: LACOSAMIDE 10 MG/ML GT SCH (09:05)
[2023-03-03 09:39] VITALS: PULSE 85; RESP 19; O2SAT 97
[2023-03-03] MEDS ORDERED: VANCOMYCIN 1,000 MG in DEXTROSE 5% 250 ML IV SCH (10:00)
[2023-03-03 10:18] VITALS: TEMP 97.4
[2023-03-03] MEDS: LACTATED RINGERS 1,000 ML IV SCH (12:04)
[2023-03-03] MEDS: FOAM DRESSING TP SCH (12:07)
[2023-03-03] MEDS ORDERED: NITR100C7 PO (14:26)
[2023-03-03 14:53] VITALS: BP 129/88; PULSE 85; RESP 19; TEMP 97.4
[2023-03-04] MEDS ORDERED: ALGINATE ROPE MC SCH (09:00)
== END 2023-03-03 16:57 | DRG 466 ==
LOC: MED 15:53 → MTU 21:53
PROVIDERS: ADMIT Hospitalist; ATTEND Hospitalist
DX: T83.518A Infection and inflammatory reaction due to other urinary catheter, initial encounter (principal); E44.0 Moderate protein-calorie malnutrition; R53.2 Functional quadriplegia; N39.0 Urinary tract infection, site not specified; G40.909 Epilepsy, unspecified, not intractable, without status epilepticus; K59.00 Constipation, unspecified; R13.10 Dysphagia, unspecified; G80.9 Cerebral palsy, unspecified; Z88.8 Allergy status to other drugs, medicaments and biological substances; Z91.09 Other allergy status, other than to drugs and biological substances; Z79.899 Other long term (current) drug therapy; Z93.1 Gastrostomy status; Z79.82 Long term (current) use of aspirin; Z68.27 Body mass index [BMI] 27.0-27.9, adult
CPT/HCPCS: 36415; 71045; 80053; 80156; 80184; 80299; 81001; 83605; 83690; 83735; 84100; 85025; 87040; 87081; 87086; 87186; 94640; 96374; 99285; J1644; J2001; J2543; J3370; J3475; J3480; J7030; J7060; J7626; J8597

== ENCOUNTER 2023-03-31 16:57 | Emergency (ER) | payer OTHER ==
[~2023-03-31] VITALS: Ht 142.2 cm; Wt 49.9 kg
[~2023-03-31 16:57] MED LIST changes: -LEVO-481 GT; +MIDO2.5T PO; +NITR100C7 PO
[2023-03-31 16:59] VITALS: BP 132/76; PULSE 58; RESP 18; TEMP 97.1; O2SAT 98
[2023-03-31 18:17] LABS: ANION GAP 16.5 (8-16); CALCIUM 8.9 mg/dL (8.5-10.1); CARBON DIOXIDE 23.9 mmol/L (21-32); CREATININE 0.3 mg/dL (0.6-1.3); POTASSIUM 5.4 mmol/L (3.5-5.1)
[2023-03-31 18:45] LABS: BASOPHILS # (AUTO) 0.1 K/uL (0.00-0.22); BASOPHILS % (AUTO) 1.2 % (0.0-2.0); EOSINOPHILS # (AUTO) 0.3 K/uL (0-0.4); EOSINOPHILS % (AUTO) 3.8 % (0.0-4.0); HEMATOCRIT 38.3 % (36-48); HEMOGLOBIN 12.9 g/dL (12.0-16.0); LYMPHOCYTES # (AUTO) 1.6 K/uL (2.5-16.5); MEAN CORPUSCULAR HEMOGLOBIN 32 pg (27-31); MEAN CORPUSCULAR HGB CONC 34 g/dL (33-37); MEAN CORPUSCULAR VOLUME 94.4 fL (80-94); MONOCYTES # (AUTO) 0.5 K/uL (0.8-1.0); MONOCYTES % (AUTO) 6.5 % (1.7-9.3); NEUTROPHILS % (AUTO) 66.5 % (42.2-75.2); PLATELET COUNT (AUTO) 32 K/uL (140-450); RED BLOOD CELL COUNT(AUTO) 4.06 MIL/uL (4.20-5.40); RED CELL DISTRIBUTION WIDTH 13.7 % (11.6-13.7); WHITE BLOOD COUNT (AUTO) 7.5 K/uL (4.8-10.8)
[2023-03-31 19:26] VITALS: O2SAT 98
[2023-04-01 00:38] VITALS: O2SAT 97
[2023-04-01 03:11] VITALS: BP 115/75; PULSE 87; RESP 13; TEMP 97.4; O2SAT 97
== END 2023-04-01 03:10 | disposition home or self-care (01) ==
LOC: MED 16:57
DX: S31.113D Laceration without foreign body of abdominal wall, right lower quadrant without penetration into peritoneal cavity, subsequent encounter (principal); K52.9 Noninfective gastroenteritis and colitis, unspecified; G80.9 Cerebral palsy, unspecified; X58.XXXD Exposure to other specified factors, subsequent encounter
CPT/HCPCS: 36415; 74177; 80048; 85025; 99285; Q9967